=== PATIENT | female | born 1945 | race Caucasian/White ===

== ENCOUNTER → 2018-08-21 14:38 | Outpatient (CLI) | payer MEDICARE, BC, OTHER, SELFPAY ==
--- NOTE | 2018-08-21 14:40 | DI.RAD.S_ITS ---
PROCEDURE: XR FOOT LT MIN 3V INDICATIONS: Pain in L foot after fall down stairs TECHNIQUE: 3 views of the foot were acquired. COMPARISON: None. FINDINGS: Bones: No fractures or dislocations. No suspicious bony lesions. Soft tissues: No tibiotalar joint effusion. Achilles tendon appears normal. IMPRESSION: No visualized acute fracture or dislocation. However, if clinical concern and/or pain persist, short interval imaging followup in 7-10 days is recommended, as occult injury cannot be definitively excluded. Dictated by: Zaria Martinez M.D. on 08/21/2018 at 15:28 Approved by: Zaria Martinez M.D. on 08/21/2018 at 15:36
== END ==
PROVIDERS: PCP Internal Medicine; Visit Provider Physician Assistant
DX: M79.672 Pain in left foot (principal)
CPT/HCPCS: 73630

== ENCOUNTER → 2019-03-13 08:26 | Outpatient (CLI) | payer MEDICARE, BC, OTHER, SELFPAY ==
--- NOTE | 2019-03-13 | DI.MG.S_ITS ---
BILATERAL DIGITAL SCREENING MAMMOGRAM 3D/2D WITH CAD: 03/13/2019 CLINICAL: Routine screening. Comparison is made to exams dated: 02/07/2018 mammogram, 01/25/2017 mammogram, and 01/11/2016 mammogram - [facility]. The tissue of both breasts is heterogeneously dense. This may lower the sensitivity of mammography. Current study was also evaluated with a Computer Aided Detection (CAD) system. There are a grouped fine punctate calcifications in the left breast at 1 o'clock posterior depth. No other significant masses, calcifications, or other findings are seen in either breast. IMPRESSION: INCOMPLETE: NEEDS ADDITIONAL IMAGING EVALUATION The grouped fine punctate calcifications in the left breast are indeterminate. Mediolateral, spot magnification, and additional views are recommended. This exam was interpreted at Station ID: [id number]. NOTE: For mammograms, a report in lay terms will be sent to the patient. Approximately 15% of breast malignancies will not be visualized mammographically. In the management of a palpable breast mass, a negative mammogram must not discourage biopsy of a clinically suspicious lesion. Electronically Signed By: Jac myers/salvador:03/13/2019 11:38:37 letter sent: Additional Imaging Needed ACR BI-RADS Category 0: Incomplete 3340F
== END ==
PROVIDERS: PCP Internal Medicine; Visit Provider Internal Medicine
DX: Z12.31 Encounter for screening mammogram for malignant neoplasm of breast (principal)
CPT/HCPCS: 77063; 77067

== ENCOUNTER → 2019-03-27 14:06 | Outpatient (CLI) | payer MEDICARE, BC, OTHER, SELFPAY ==
--- NOTE | 2019-03-27 | DI.US.S_ITS ---
LIMITED ULTRASOUND OF LEFT BREAST: 03/27/2019 CLINICAL: Patient returns today to evaluate a focal asymmetry in the left breast. Comparison is made to exams dated: 03/27/2019 mammogram, 03/13/2019 mammogram, 02/07/2018 mammogram, 01/25/2017 mammogram, 01/11/2016 mammogram, and 12/02/2014 mammogram - [facility]. Color flow and real-time ultrasound of the left breast 2 o'clock region were performed on the areas of interest. There is 0.4 cm x 0.3 cm x 0.3 cm round cyst with debris in the left breast at 2 o'clock posterior depth. This round cyst with debris is hypoechoic with a well-defined boundary and internal echoes. There is not definitive posterior acoustic enhancement. This likely correlates with mammography findings. Color flow imaging demonstrates that there is no vascularity present. IMPRESSION: PROBABLY BENIGN The 0.4 cm x 0.3 cm x 0.3 cm round cyst with debris in the left breast is probably benign. Follow-up mammogram and ultrasound in 6 months is recommended. A follow-up mammogram and an ultrasound in 6 months is recommended to demonstrate stability. This exam was interpreted at Station ID: [id number]. Electronically Signed By: Jac myers/:03/29/2019 15:53:36 letter sent: Followup Recommended Ultrasound BI-RADS: 3 Probably benign
--- NOTE | 2019-03-27 14:08 | DI.MG.S_ITS ---
UNILATERAL LEFT DIGITAL DIAGNOSTIC MAMMOGRAM 3D/2D WITH ADDITIONAL VIEWS: 03/27/2019 CLINICAL: Additional evaluation requested from prior study. Comparison is made to exams dated: 03/13/2019 mammogram, 02/07/2018 mammogram, and 01/25/2017 mammogram - [facility]. The tissue of left breast is heterogeneously dense. This may lower the sensitivity of mammography. There are new grouped fine punctate calcifications in the left breast at 2 o'clock posterior depth. There is suggestion of an associated oval asymmetry with indistinct margins. No other significant masses or calcifications are seen in the breast. IMPRESSION: INCOMPLETE: NEEDS ADDITIONAL IMAGING EVALUATION The new grouped fine punctate calcifications in the left breast with associated asymmetry are indeterminate. An ultrasound is recommended. This exam was interpreted at Station ID: [id number]. NOTE: For mammograms, a report in lay terms will be sent to the patient. Approximately 15% of breast malignancies will not be visualized mammographically. In the management of a palpable breast mass, a negative mammogram must not discourage biopsy of a clinically suspicious lesion. Electronically Signed By: Jac Miller M.D. ddclive/:03/27/2019 14:44:37 ACR BI-RADS Category 0: Incomplete 3340F
== END ==
PROVIDERS: PCP Internal Medicine; Visit Provider Internal Medicine
DX: R92.8 Other abnormal and inconclusive findings on diagnostic imaging of breast (principal); N60.02 Solitary cyst of left breast
CPT/HCPCS: 76642; 77065; G0279

== ENCOUNTER → 2019-06-26 12:22 | Outpatient (CLI) | payer MEDICARE, BC, OTHER, SELFPAY ==
[2019-06-26 12:42] LABS: Add Manual Diff / Slide Review NO; Basophils Absolute Auto 0 /uL (0-100); Basophils Percent Auto 0.6 % (0-2); Eosinophils Absolute Auto 200 /uL (0-450); Eosinophils Percent Auto 2.8 % (2-4); Hematocrit 37.2 % (36-46); Hemoglobin 12.6 g/dL (12.0-16.0); Lymphocytes Absolute Auto 2700 /uL (1100-4500); Lymphocytes Percent Auto 33.9 % (25-40); Mean Corpuscular HGB Conc 33.9 % (30-36); Mean Corpuscular Hemoglobin 30.8 PG (26-34); Mean Corpuscular Volume 90.7 fL (80-100); Monocytes Absolute Auto 700 /uL (0-900); Neutrophils Absolute Auto 4300 /uL (1500-7000); Neutrophils Percent Auto 53.7 % (50-75); Platelet Count 382 X10^3/uL (150-400); Red Cell Distribution Width 14.1 % (11.6-14.8)
[2019-06-26 13:27] LABS: Carbon Dioxide 34 mmol/L (22-32); Chloride 99 mmol/L (98-107); HEMOLYSIS < 15 (0-50); Potassium 4.1 mmol/L (3.4-5.1); Sodium 142 mmol/L (137-145)
== END ==
PROVIDERS: Family Provider Internal Medicine; PCP Internal Medicine; Visit Provider Orthopaedic Surgery
DX: M17.12 Unilateral primary osteoarthritis, left knee (principal); Z01.818 Encounter for other preprocedural examination; Z01.812 Encounter for preprocedural laboratory examination
CPT/HCPCS: 36415; 80051; 85025; 93005; 93010

== ENCOUNTER 2019-07-17 07:06 | Day surgery (SDC) | payer MEDICARE, BC, OTHER, SELFPAY ==
[2019-07-03 08:46] VITALS: BMI 25.0
[2019-07-17] VITALS (10 sets, daily range): BP systolic 123–144; BP diastolic 57–80; PULSE 68–76; RESP 12–16; TEMP 36–36.6; O2SAT 94–100; BMI 25.0
--- NOTE | 2019-07-17 06:00 | DI.RAD.S_ITS ---
PROCEDURE: XR KNEE LT 1TO2V INDICATIONS: post op left TKA TECHNIQUE: 2 view(s) of the knee acquired. COMPARISON: None. FINDINGS: Bones: Patient is status post knee joint arthroplasty. Hardware components are in expected positions. Visualized bony structures are intact. Soft tissues: Overlying postoperative changes are noted. IMPRESSION: Status post left total knee arthroplasty. Dictated by: Michaelle Gerber M.D. on 07/17/2019 at 11:27 Approved by: Michaelle Gerber M.D. on 07/17/2019 at 11:28
--- NOTE | 2019-07-17 07:29 | PM.PREOP ---
Pre-operative Note Interval Note History & Physical reviewed/Exam performed by Physician: Yes Changes to H&P: No
[2019-07-17] MEDS: LACTATED RINGERS 1,000 ML 42 ML IV (07:45)
[2019-07-17] MEDS: PREGABALIN 75 MG CAPSULE PO (08:05)
[2019-07-17] MEDS: CELECOXIB 200 MG CAPSULE PO (08:06)
[2019-07-17] MEDS: ACETAMINOPHEN 325 MG TABLET 975 MG PO ×2 (08:06→14:49)
--- NOTE | 2019-07-17 08:06 | SUR.OPER ---
Supine on padded OR bed. Pillow under head, arms secured on padded armboards <90 degree abduction. Safety belt across torso. Non-operative leg secured with tape over blanket over lower leg. Operative leg secured in DeMayo/Stewart positioner. Foam padded brace at thigh of operative leg.
[2019-07-17] MEDS: VANCOMYCIN 1,000 MG/200 ML PIGGYBACK 200 MG IV (08:33)
[2019-07-17] MEDS: LIDOCAINE 1% W/EPI 20 ML INJ (09:35)
[2019-07-17] MEDS: TRANEXAMIC ACID 1,000 MG VIAL 1000 MG INJ (09:40)
[2019-07-17] MEDS: BUPIVACAINE 0.25% W/ EPI (PF) 20 ML, TRANEXAMIC ACID 1,000 MG, SODIUM CHLORIDE 0.9% 10 ML INJ (10:05)
[2019-07-17] MEDS: BUPIVACAINE LIPOSOME 266 MG/20 ML VIAL INJ (10:07)
[2019-07-17] MEDS: BUPIVACAINE 0.25% W/ EPI 30 ML VIAL 60 ML INJ (10:07)
[2019-07-17] MEDS: SODIUM CHLORIDE IRRIG SOLUTION 250 ML, POVIDONE-IODINE SPONGE STICKS 1 APPLIC IRR (10:10)
--- NOTE | 2019-07-17 10:59 | PM.OP.1 ---
Operative Date/Time/Diagnoses Date of procedure: 07/17/19 Time of procedure: 10:59 Pre-op diagnosis: Left knee osteoarthritis Post-op diagnosis: same Procedure & Clinicians Procedure: Left total knee arthroplasty Same procedure as scheduled: Yes Indications: The patient presents today for total knee arthroplasty after failure of conservative treatment. The nature of the procedure including the risks and benefits, alternatives, postoperative course and expected outcome were discussed and all questions answered. Consent was obtained. Operative site confirmed and marked. Surgeon: Jac Pitt [employer] Associate: Neo Cote Anesthesia Type: General and Local Operative Notes Findings: Severe osteoarthritis with varus alignment Closure Type: primary Specimen(s): none sent Prosthetic devices, grafts, tissues, transplants, or devices: Zamora and Nephew Zohaib BCS: 3 femoral component, 3 tibial component, 9 mm BCS polyethylene tray and 32 mm round patella Applied: implant(s) Estimated Blood Loss (mL): 20 Blood products transfused: none Tourniquet time (min): 51 Procedure in detail: The patient was taken to the operative suite and placed under general. The patient was given prophylactic antibiotics prior to surgery. The patient was also given tranexamic acid, 1 g, just prior to surgery for postoperative hemostasis. The lateral knee was prepped and the joint injected with 20 mL of 1% Lidocaine with epinephrine. The knee was then prepped and draped in usual sterile fashion. The leg was exsanguinated with an Esmarch dressing and the tourniquet raised to 250 torr. A 15 cm anterior incision was made. Next a medial trivector arthrotomy was made. The extensor mechanism was marked to ensure accurate repair. Initial exposing dissection was carried out medially and laterally. The knee was then extended and the patellar thickness was measured and a cut made removing approximately 7-8 mm of bone. The patella was then sized and drilled. Some excess lateral bone was excised and the patellofemoral ligament released. The knee was then flexed and the intramedullary femoral guide shubham placed. The distal femoral cut was made in 6 ? of valgus at the + 0 position. The femoral size was measured and the appropriate cutting block was then placed and the anterior, posterior and chamfer cuts made. The extra medullary tibial alignment shubham was then placed along the anatomic axis of the tibia approximating the normal slope. The guide was set to remove approximately 10 mm from the less affected lateral side. The proximal tibial cut was then made with an oscillating saw. All meniscus and bony debris was then removed. Flexion extension gaps were checked. No specific balancing was required other than routine removal of osteophytes. The soft tissues were then injected with a combination of 20 mL of half percent Marcaine with epinephrine and 20 mL of Exparel. The trial components were then placed. The knee went into full extension and flexion beyond 120?. There was excellent medial- lateral balance throughout motion. The knee was just slightly tighter medially than laterally in flexion and extension. Patellar tracking was excellent. The trial components were removed and the knee was cleansed with Pulsavac irrigation and dried. The final components were cemented in with high viscosity vacuum mixed bone cement with antibiotics. The knee was held in extension and the patellar clamp until the cement had adequately cured. The knee was irrigated and inspected for any further debris. The knee was then irrigated with dilute Betadine solution. The extensor mechanism was closed with 5 interrupted #1 Vicryl sutures in 90 degrees of flexion. The joint was then injected with a combination of 1 g of tranexamic acid and 20 mL of quarter percent Marcaine with epinephrine. The subcutaneous tissue was closed with 2-0 Vicryl. The skin was closed with nayeli and surgical adhesive. An Aquacell dressing and Azam wrap were then applied. The patient tolerated the procedure well and was returned to recovery room in good condition. Complications: none
[2019-07-17] MEDS: LACTATED RINGERS 1,000 ML 125 ML IV (12:45)
--- NOTE | 2019-07-17 14:58 | PT.IIE ---
Current Diagnoses Unilateral primary osteoarthritis, left knee (07/17/19) Surgery Performed Operation Date: 07/17/19 09:15 Actual Procedures p Total Knee Arthroplasty(Left) - Jac Pitt MD Surgical History (Last Updated 07/03/19 @ 09:17 by Evelia Garza, RN) History of colonoscopy with polypectomy (Acute ~02/2017) Hx of appendectomy (Acute) Hx of arthroscopy of left knee (Acute ~2007) Hx of bilateral cataract extraction (Acute ~2011) Hx of hernia repair (Acute ~1993) Hx of repair of right rotator cuff (Acute ~2011) Hx of tonsillectomy (Acute ~1948) Status post correction of deviated nasal septum (Acute ~1997) Medical History (Last Updated 07/03/19 @ 09:16 by Evelia Garza RN) Depression (Acute) Diverticulosis of large intestine (Inactive 06/09/11) H/O: hysterectomy (Acute) Hyperlipidemia (Chronic 06/09/11) Hypertension (Chronic 06/09/11) Migraine without status migrainosus, not intractable (Inactive 01/13/17) Obstructive sleep apnea syndrome (Chronic 06/09/11) Pneumonia (Acute ~09/2015) Rib fractures (Acute ~1977) Serrated adenoma of colon (Inactive 09/21/17) Physical Therapy Inpatient Evaluation/Re-Eval M1 PT/OT-IP Prior Functional Status Start: 07/17/19 13:10 Freq: NEEDED Status: Active Protocol: Document 07/17/19 14:58 DLM (Rec: 07/17/19 16:49 DLM [id number]) Medical Review Prior Functional Status Medical History Reviewed Yes Diet/Fluid Consistency Regular Communication WNL Mobility and Gait Independent without device, used cane intermittently before surgery to manage her knee pain Activities of Daily Living and IADL's Independent Social History Household Members none Living Arrangements House Number of Floors (Floors) One Floor Number of Stairs To Enter/Railing? none Home Environment Standard Height Toilet,Walk in Shower,Built-In Shower Seat Home Equipment Four Wheel Walker,Straight Cane,Raised Toilet Seat Without Armrests Employment Status Retired Additional Social History Comment suction grab bars she can use in bathroom if needed M2 PT-IP Current Condition Start: 07/17/19 13:10 Freq: NEEDED Status: Active Protocol: Document 07/17/19 14:58 DLM (Rec: 07/17/19 16:49 [facility] [id number]) Physical Therapy Current Condition Current Condition Evaluation Date 07/17/19 Treatment Diagnosis left TKA, impaired gait/ mobility Onset Date 07/17/19 Weight Bearing Status Weight Bearing Status Weight Bear as Tolerated M3 PT-IP Subjective Start: 07/17/19 13:10 Freq: NEEDED Status: Active Protocol: Document 07/17/19 14:58 DLM (Rec: 07/17/19 16:49 [facility] [id number]) Subjective Physical Therapy Visit Type Type Initial Evaluation Visit Start Time 14:10 Visit Stop Time 14:58 Total Visit Minutes 48 Number of SCIENTIFIC LINGUIST Visits 0 Physical Therapy Visit Comments Patient Comments She feels like she could go home today Patient Goals discharge home with her Sister to help her as needed Therapy Pain Assessment Pain When Pain Assessed During Mobility Pain Present Pain Present Pain Reported Location Left Knee Intensity 2 Scale Used Numeric (1 - 10) Description Aching Pain Management Techniques Apply Cold,Re-positioning M4 PT-IP Mobility and Gait Start: 07/17/19 13:10 Freq: NEEDED Status: Active Protocol: Document 07/17/19 14:58 DLM (Rec: 07/17/19 16:49 [facility] [id number]) PT-Bed Mobility Assessment Rolling Level of Assist Independent Supine to Sit Supine to Sit Independent Sit to Supine Sit to Supine Independent Scooting Scooting to Edge of Bed Independent PT-Transfer Assessment Sit to and From Stand Sit to and from Stand Independent,Use of Upper Extremities Equipment Transfer Assistive Device Gait Belt,Front Wheeled Walker Transfers Transfer Destination Chair Transfer Technique Stand Step Pivot Transfer Ability Level of Assist Independent,Use of Upper Extremities Comments Mobility Comments verbal cues for safe use of UE 's to assist Gait Assessment Gait Gait Assistance Required: Standby Assistance Distance (Feet) 100 Able to Maintain Weight Bearing Status Yes During Gait Assistive Devices Assistive Device Gait Belt,Front Wheeled Walker Gait Deviations General Gait Pattern Antalgic Factors Limiting Gait Function Factors Limiting Gait Function Decreased Activity Tolerance, Decreased Strength Comments Gait Comments education for sequencing with fWW PT-Balance Assessment Sitting Balance and Reactions Static Sitting Balance Ability Normal Dynamic Sitting Balance Ability Good Standing Balance and Reactions Static Standing Balance Ability Good Dynamic Standing Balance Ability Good Device Used FWW M5 PT-IP Objective Assessments Start: 07/17/19 13:10 Freq: NEEDED Status: Active Protocol: Document 07/17/19 14:58 DLM (Rec: 07/17/19 16:49 [facility] [id number]) Orientation Orientation/Cognition Level of Alertness Alert Orientation Name,Age,Birthday,Month,Date, Year,Day of Week,Place, Situation Language Function Ability No Deficits Noted Safety Awareness Understands Safety Issues Memory Description No Deficits Noted Gross Range of Motion Upper Extremity ROM Assessment Within Functional Limits Lower Extremity ROM Assessment Left Impaired Impairments AROM 10-88 degrees Strength Upper Extremity Strength Assessment Within Functional Limits Lower Extremity Strength Assessment Left Impaired Hip able to do straight leg raise with extensor lag Knee 3-/5 ext Ankle DF 5/5 Coordination Assessment Gross Coordination Gross Coordination WNL Sensation Assessment Sensation Gross Sensation WNL Comments Sensation Comments no numbness reported, ronaldo wrap and dressing over left knee post-op Muscle Tone Muscle Tone WNL Yes M6 PT-IP Treatment Start: 07/17/19 13:10 Freq: NEEDED Status: Active Protocol: Document 07/17/19 14:58 DLM (Rec: 07/17/19 16:49 [facility] [id number]) Physical Therapy Treatment Exercises Exercises Ankle Pumps,Quad Sets,Heel Slides,Straight Leg Raises, Short Arc Quads,Passive Knee Extension Hang,Seated Knee Flexion/Extension Education Education Provided Weight Bearing Status,Post-Op Packet,Safety M7 PT-IP Assessment and Plan Start: 07/17/19 13:10 Freq: NEEDED Status: Active Protocol: Document 07/17/19 14:58 DLM (Rec: 07/17/19 16:49 [facility] [id number]) PT Summary Assessment and Plan Potential Rehabilitation Potential Good Status of Condition at Evaluation Evolving Summary Impairments Pain,ROM,Strength,Balance,Bed Mobility,Transfers,Gait, Activity Tolerance Assessment Summary Ana is tolerating mobility and gait well day of surgery for left TKA. No nausea and no light-headedness when up moving. Pt up to recliner and ambulated in the barclay with fWW . Her Sister plans to stay with her at home to assist as needed. She has the equipment to use at home. She has out-pt PT set up after discharge. She appears safe to discharge home today if medically cleared by the surgeon. Treatment Plan Other Recommendations and Next Treatment cleared for discharge home Focus with medically cleared Recommendations To Nursing Amount of Assist Needed Standby Assistance Discharge Recommendations PT Discharge Recommendations Home with Assistance, Outpatient PT
--- NOTE | 2019-07-17 15:07 | PM.DS.1 ---
History of Present Illness History of Present Illness Date Patient Seen: 07/17/19 Time Patient Seen: 15:07 Chief complaint: [id number] Narrative: Patient's pain is mild. No fever chills. No nausea vomiting. She was able ambulate with physical therapy. She was able to urinate on her own. She has assistance at home. Patient wishes to go home. Discharge Providers Provider Date of admission: 07/17/19 07:06 Discharge Date: 07/17/19 Primary care physician: Jayson Devine MD Consults: 07/17/19 08:00 Consult to Respiratory Therapy Evaluate & Treat Comment: Physician Instructions: Evaluate and treat 07/17/19 12:09 Consult to Discharge Planning Routine Comment: Consult to Physical Therapy Evaluate & Treat Comment: Physician Instructions: postop TKA protocol Consult to Respiratory Therapy Evaluate & Treat Comment: Physician Instructions: Evaluate and treat Discharge provider: Neo Cote PA-C Summary Hospital Course Discharge Diagnosis: Status post left total knee arthroplasty secondary to severe left knee osteoarthritis Hospital Course: Patient mid to the hospital for left total knee arthroplasty after failing a long course of conservative outpatient treatment. Patient consented to the same. Patient taken to the operating room underwent left total knee arthroplasty. Patient is recovering well as in stable condition. Patient has worked with Physical therapy and able to mobilize. She is able urinate on her own. Pain is well controlled. She will be discharged home today in stable condition. Status at Discharge Cognitive/behavioral status at discharge: at baseline, oriented Functional status at discharge: uses cane/walker Overall status at discharge: patient is progressing back to baseline Time Spent with Patient Time spent: Less than 30 minutes Exam Vital Signs (past 8 hours): - 07/17/19 07:45 07/17/19 11:05 07/17/19 11:10 Temperature 96.8 F L 97.8 F Pulse Rate 68 75 70 Respiratory Rate 15 12 12 Blood Pressure 144/80 H 136/57 L 125/66 Pulse Oximetry 99 97 97 07/17/19 11:15 07/17/19 11:25 07/17/19 11:40 Temperature Pulse Rate 71 73 73 Respiratory Rate 12 14 15 Blood Pressure 137/66 135/61 131/63 Pulse Oximetry 98 95 94 07/17/19 12:09 07/17/19 12:53 07/17/19 13:00 Temperature 97.5 F L 97.4 F L Pulse Rate 74 72 74 Respiratory Rate 16 16 16 Blood Pressure 131/67 125/70 Pulse Oximetry 96 99 100 08 13:59 Temperature 97.4 F L Pulse Rate 76 Respiratory Rate 16 Blood Pressure 123/66 Pulse Oximetry 97 Fraction of Inspired Oxygen 21 Oxygen Delivery Method Room Air Oxygen Flow Rate 0 Narrative Exam Narrative: Pleasant 73-year-old female resting comfortably in bedside chair in no apparent distress. Dressing is clean, dry and intact. Left lower extremity is warm and dry. Motor function and sensation is intact distally. Discharge Plan Discharge Plan Patient Disposition: Home Discharge Med Rec/Prescriptions Prescriptions: New aspirin 81 mg Tablet,Delayed Release (Dr/Ec) 81 mg PO BID Qty: 60 RF: 0 Continued multivitamin Capsule 1 cap PO BEDTIME Qty: 0 RF: 0 atenolol 50 mg Tablet 50 mg PO BEDTIME RF: 0 naproxen sodium [Aleve] 220 mg Capsule 440 mg PO BEDTIME RF: 0 atorvastatin [Lipitor] 20 mg tablet 20 mg PO BEDTIME RF: 0 hydrochlorothiazide 25 mg tablet 25 mg PO BEDTIME RF: 0 escitalopram oxalate [Lexapro] 10 mg tablet 10 mg PO BEDTIME RF: 0 Discontinued aspirin 81 mg Tablet,Delayed Release (Dr/Ec) 81 mg PO BEDTIME Qty: 0 RF: 0 Follow up/Referrals: Jac Pitt MD [Physician] - (1 wk) Jayson Devine MD [Primary Care Provider] - Provider Discharge Instructions Diet: Diet as Tolerated Activity: per [facility] Cold/Heat Therapy: per [facility] Other treatments: Aspirin 81 mg b.i.d., Tylenol 500 mg every 4 hours, NSAID as directed Skin/Wound/Dressing Care Report to your healthcare provider any signs of infection, such as:: chills, fever Dressing: keep clean and dry Discharge Data Primary Care Provider: Jayson Devine
--- NOTE | 2019-07-17 16:55 | PC.NURSE ---
Criselda shift note: Patient discharge home per MD orders, cleared by PT. Verbalized understanding of discharge instructions, discussed importance of F/U with Orthopedic in 1 week. CMS intact to LLE. No c/o pain or discomfort, VSS. Discharged home via private vehicle in stable condition.
== END 2019-07-17 13:45 | disposition home or self-care (01) ==
LOC: AC 15:07 → OR 07-18 08:56
PROVIDERS: Family Provider Internal Medicine; PCP Internal Medicine; Visit Provider Orthopaedic Surgery
PROC: 0SRD0JZ Replacement of Left Knee Joint with Synthetic Substitute, Open Approach (ICD-10-PCS; CPT 27447; principal; 2019-07-17 09:15)
DX: M17.12 Unilateral primary osteoarthritis, left knee (principal); I10 Essential (primary) hypertension; E78.5 Hyperlipidemia, unspecified; G47.33 Obstructive sleep apnea (adult) (pediatric); F17.210 Nicotine dependence, cigarettes, uncomplicated
CPT/HCPCS: 27447; 73560; 94762; 97110; 97162; C1776; C9290; J1100; J2250; J2405; J2704; J3010

== ENCOUNTER → 2019-09-27 09:56 | Outpatient (CLI) | payer MEDICARE, BC, OTHER, SELFPAY ==
[2019-07-17 12:22] VITALS: BMI 25.0
--- NOTE | 2019-09-27 10:00 | DI.US.S_ITS ---
LIMITED ULTRASOUND OF LEFT BREAST: 09/27/2019 CLINICAL: 6 month follow-up of the left breast. Comparison is made to exams dated: 09/27/2019 mammogram, 03/27/2019 ultrasound, 03/27/2019 mammogram, 03/13/2019 mammogram, 02/07/2018 mammogram, and 01/25/2017 mammogram - [facility]. Color flow and real-time ultrasound of the left breast 2 o'clock region were performed. Raza scale images of the real-time examination were reviewed. There is a 0.5 cm x 0.4 cm x 0.3 cm oval cyst with debris in the left breast at 2 o'clock middle depth 6 cm from the nipple. This abnormality has not significantly changed. Color flow imaging demonstrates that there is no vascularity present. IMPRESSION: PROBABLY BENIGN The 0.5 cm oval cyst with debris in the left breast is fairly stable and appears benign. It is uncertain if it corresponds to the calcifications on mammogram. No suspicious sonographic features. A follow-up left mammogram in 6 months is recommended to demonstrate stability of probably benign calcifications also at the 2:00 position posterior depth. Findings and recommendations were conveyed to the patient at time of exam. This exam was interpreted at Station ID: [id number]. Electronically Signed By: Lori oconnell/:09/27/2019 11:34:59 letter sent: Followup Recommended Ultrasound BI-RADS: 3 Probably benign
--- NOTE | 2019-09-27 10:00 | DI.MG.S_ITS ---
UNILATERAL LEFT DIGITAL DIAGNOSTIC MAMMOGRAM 3D/2D SHORT-TERM FOLLOW-UP: 09/27/2019 CLINICAL: Patient returns for a 6 month follow up of the left breast. Comparison is made to exams dated: 03/27/2019 mammogram, 03/13/2019 mammogram, and 02/07/2018 mammogram - [facility]. The tissue of left breast is heterogeneously dense. This may lower the sensitivity of mammography. There are stable grouped fine, dystrophic punctate calcifications in the left breast at 2 o'clock posterior depth. No underlying developing asymmetry. No other significant masses or calcifications are seen in the breast. IMPRESSION: INCOMPLETE: NEEDS ADDITIONAL IMAGING EVALUATION The stable grouped fine dystrophic punctate calcifications in the left breast are probably benign. An ultrasound is recommended to document stability of previously seen underlying complicated cyst. This was performed immediately following this exam. This exam was interpreted at Station ID: [id number]. NOTE: For mammograms, a report in lay terms will be sent to the patient. Approximately 15% of breast malignancies will not be visualized mammographically. In the management of a palpable breast mass, a negative mammogram must not discourage biopsy of a clinically suspicious lesion. Electronically Signed By: Lori oconnell/:09/27/2019 11:05:57 ACR BI-RADS Category 0: Incomplete 3340F
== END ==
PROVIDERS: PCP Internal Medicine; Visit Provider Internal Medicine
DX: R92.8 Other abnormal and inconclusive findings on diagnostic imaging of breast (principal); R92.1 Mammographic calcification found on diagnostic imaging of breast; N60.02 Solitary cyst of left breast
CPT/HCPCS: 76642; 77065; G0279

== ENCOUNTER → 2020-03-12 09:48 | Outpatient (CLI) | payer MEDICARE, BC, OTHER, SELFPAY ==
[2019-07-17 12:22] VITALS: BMI 25.0
--- NOTE | 2020-03-12 | DI.MG.S_ITS ---
BILATERAL DIGITAL DIAGNOSTIC MAMMOGRAM 3D/2D: 03/12/2020 CLINICAL: Left breast calcifications follow up, due bilaterally. Comparison is made to exams dated: 09/27/2019 mammogram, 03/27/2019 mammogram, 03/13/2019 mammogram, 02/07/2018 mammogram, 09/27/2019 ultrasound, and 03/27/2019 ultrasound - [facility]. The tissue of both breasts is heterogeneously dense. This may lower the sensitivity of mammography. There are stable grouped fine dystrophic punctate calcifications in the left breast at 2 o'clock posterior depth. No other significant masses, calcifications, or other findings are seen in either breast. IMPRESSION: PROBABLY BENIGN Stable punctate calcifications in the left breast are likely early dystrophic calcifications and are probably benign. Follow-up mammogram of the left breast is recommended in 6 months. A targeted ultrasound is recommended of the left breast for previously seen probably benign complicated cyst. The ultrasound is scheduled for Tuesday, March 17, 2020. Exam findings were conveyed to the patient by the Manufacturing Quality Technician. This exam was interpreted at Station ID: [id number]. NOTE: For mammograms, a report in lay terms will be sent to the patient. Approximately 15% of breast malignancies will not be visualized mammographically. In the management of a palpable breast mass, a negative mammogram must not discourage biopsy of a clinically suspicious lesion. Electronically Signed By: Aric Ross M.D. [facility] [place]/:03/12/2020 12:34:49 ACR BI-RADS Category 3: Probably benign [id number]
== END ==
PROVIDERS: PCP Internal Medicine; Referring Provider Internal Medicine; Visit Provider Internal Medicine
DX: R92.1 Mammographic calcification found on diagnostic imaging of breast (principal); N60.02 Solitary cyst of left breast
CPT/HCPCS: 77066; G0279

== ENCOUNTER → 2020-03-17 12:33 | Outpatient (CLI) | payer MEDICARE, BC, OTHER, SELFPAY ==
[2019-07-17 12:22] VITALS: BMI 25.0
--- NOTE | 2020-03-17 12:35 | DI.US.S_ITS ---
ULTRASOUND OF LEFT BREAST: 03/17/2020 CLINICAL: 6 month follow-up of cysts. Comparison is made to exams dated: 03/12/2020 mammogram, 09/27/2019 ultrasound, 09/27/2019 mammogram, 03/27/2019 ultrasound, and 03/27/2019 mammogram - [facility]. Color flow and real-time ultrasound of the left breast were performed. Raza scale images of the real-time examination were reviewed. There is a 0.5 cm x 0.4 cm x 0.4 cm oval cyst with debris in the left breast at 2 o'clock middle depth 6 cm from the nipple. This abnormality is not significantly changed. Color flow imaging demonstrates that there is no vascularity present. IMPRESSION: PROBABLY BENIGN The stable 0.5 cm x 0.4 cm x 0.4 cm oval cyst with debris in the left breast likely represents a complicated cyst and is probably benign. A follow-up left mammogram and an ultrasound in 6 months is recommended to demonstrate stability. This exam was interpreted at Station ID: [id number]. Electronically Signed By: Rafat Hernandez M.D. at/:03/17/2020 13:22:13 letter sent: Followup Recommended Ultrasound BI-RADS: 3 Probably benign
== END ==
PROVIDERS: PCP Internal Medicine; Referring Provider Internal Medicine; Visit Provider Internal Medicine
DX: R92.8 Other abnormal and inconclusive findings on diagnostic imaging of breast (principal); N60.02 Solitary cyst of left breast
CPT/HCPCS: 76642

== ENCOUNTER 2020-05-12 07:56 | Inpatient (IN) | payer MEDICARE, BC, OTHER, SELFPAY ==
[2019-07-17 12:22] VITALS: BMI 25.0
[2020-05-12] VITALS (23 sets, daily range): BP systolic 90–185; BP diastolic 43–87; PULSE 65–80; RESP 13–24; TEMP 35.9–37.4; O2SAT 96–100; BMI 25.0; BMI 24.2
--- NOTE | 2020-05-12 | PATH_ITS ---
[facility] Accession Number: [id number] . 01 Material submitted: . gastrointestinal site - GASTRIC BIOPSY . 01 Clinical history: . SYNCOPE, VOMITING R/O H.PYLORI . 02 Diagnosis: Gastric Biopsy: Antral and body-type mucosa with mild chronic inflammation. Negative for Helicobacter organisms by immunohistochemistry. Negative for intestinal metaplasia. Negative for dysplasia and malignancy. MRV 05/14/2020 1031 Local . 02 Electronically signed: . Cynthia Nathan MD, Pathologist NPI- [id number] . 01 Gross description: . GASTRIC BIOPSY: Received in formalin are 4 fragment(s) of ram, soft tissue measuring 0.3 x 0.2 x 0.1 cm to 0.1 x 0.1 x 0.1 cm submitted entirely in 1 cassette(s) /QBJ 05/13/2020 0425 Local . 02 Microscopic: . An immunohistochemical stain was performed to evaluate for Helicobacter organisms and is negative. The control stain showed appropriate reactivity. . * This test was developed and its performance characteristics determined by [facility]. It has not been cleared or approved by the U.S. Food and Drug Administration. The FDA has determined that such clearance or approval is not necessary. This test is used for clinical purposes. It should not be regarded as investigational or for research. . 02 Pathologist provided ICD-10: K29.70 . 02 CPT . 400502, H48258 Performed at: 01 [facility] [address] [facility], [place], [place] [id number] MD Jac Owens MD Phone: [phone] Performed at: 02 [facility] [id number] [place], [place] [id number] MD Sachi Clarke MD Phone: [phone]
--- NOTE | 2020-05-12 08:04 | ED.GIBLEED ---
HPI - GI Bleed General Chief complaint: GI Bleed Stated complaint: Syncope, Vomiting Time Seen by Provider: 05/12/20 08:01 Source: patient and EMS Mode of arrival: EMS Limitations: no limitations History of Present Illness HPI Narrative: Patient is a 74-year-old female on aspirin presenting with multiple syncopal episodes and continuous black stool for 2 days. She states that she has had multiple episodes of black stool and at least 5 times of a vomit since yesterday. She states every time she stands up she passes out. This has happened multiple times she gets extremely lightheaded and usually falls back to the couch. She is not sure that she has hit her head she denies any injury from the falls. She feels short of breath at times as well she has no abdominal pain. Initial pressure for EMS was 60 over palpable which has improved with IV fluids. Treatments Prior to Arrival: none Related Data Home Medications Medication Instructions Recorded Confirmed multivitamin 1 cap PO BEDTIME #0 10/05/11 05/12/20 aspirin 81 mg tablet,delayed 81 mg PO DAILY tab 09/10/19 05/12/20 release naproxen sodium 220 mg capsule 440 mg PO BEDTIME PRN 09/10/19 05/12/20 Previous Rx's Medication Instructions Recorded atorvastatin 20 mg tablet 20 mg PO BEDTIME #90 tab 09/10/19 escitalopram oxalate 10 mg tablet 10 mg PO BEDTIME #90 tab 09/10/19 hydrochlorothiazide 25 mg tablet 25 mg PO BEDTIME #90 tab 09/10/19 metoprolol succinate 50 mg 50 mg PO QDAY #90 ter 04/15/20 tablet,extended release 24 hr Allergies Allergy/AdvReac Type Severity Reaction Status Date / Time Penicillins [PENICILLINS] Allergy Intermediate Hives Verified 05/12/20 08:07 adhesive [ADHESIVE] Allergy Mild RASH Verified 05/12/20 08:07 CHIVES Allergy Severe ANAPHYLAXIS Uncoded 05/12/20 08:07 Review of Systems Review of Systems ROS Unobtainable: All systems reviewed & are unremarkable except as noted in HPI and below Constitutional Constitutional: Reports fatigue and Denies frequent falls ENT Ears, Nose, Mouth, and Throat: Denies dizziness Cardiovascular Cardiovascular: Denies chest pain, Denies chest pain at rest, Denies edema and Reports dyspnea on exertion Respiratory Respiratory: Reports dyspnea on exertion Gastrointestinal Gastrointestinal: Reports as per HPI Musculoskeletal Musculoskeletal: Denies numbness Integumentary/Breasts Skin/Breast: Denies pruritus, Denies erythema, Denies rash and Denies wounds Neurologic Neurologic: Denies behavioral changes, Denies confusion, Denies dizziness, Denies frequent falls and Denies numbness Psychiatric Psychiatric: Denies behavioral changes and Denies confusion Endocrine Endocrine: Reports fatigue Patient History Medical History Depression (Acute) Diverticulosis of large intestine (Inactive 06/09/11) Hyperlipidemia (Chronic 06/09/11) Hypertension (Chronic 06/09/11) Migraine without status migrainosus, not intractable (Inactive 01/13/17) Obstructive sleep apnea syndrome (Chronic 06/09/11) Pneumonia (Acute ~09/2015) Rib fractures (Acute ~1977) Serrated adenoma of colon (Inactive 09/21/17) Surgical History H/O: hysterectomy (Acute) History of colonoscopy with polypectomy (Acute ~02/2017) Hx of appendectomy (Acute) Hx of arthroscopy of left knee (Acute ~2007) Hx of bilateral cataract extraction (Acute ~2011) Hx of hernia repair (Acute ~1993) Hx of repair of right rotator cuff (Acute ~2011) Hx of tonsillectomy (Acute ~1948) Status post correction of deviated nasal septum (Acute ~1997) Status post left knee replacement (Acute ~06/2019) Social History household members: none Smoking Status: Current every day smoker alcohol intake: current Smoking Status: Current every day smoker (3-4 cigs a day and sometimes patient can go a few days without. 09/10/19) alcohol intake frequency: holidays/special occasions only Substance Use Type: does not use Exam Initial Vital Signs Initial Vital Signs: Vital Signs Pulse Rate 74 05/12/20 08:02 Respiratory Rate 22 05/12/20 08:02 Blood Pressure 113/59 L 05/12/20 08:02 Pulse Oximetry 99 05/12/20 08:02 GENERAL: Week alert elderly female HEENT: Head atraumatic,EOMI, pupils reactive, face symmetric, dry mucous membranes, pale conjunctiva CARDIOVASCULAR: Regular rate and rhythm without murmurs, rubs or gallops. RESPIRATORY: Breath sounds equal bilaterally, no wheezes rales or rhonchi. ABDOMEN: Soft, nontender. Normoactive bowel sounds all 4 quadrants. No guarding or rebound. RECTAL: Gross blood : No CVA tenderness EXTREMITIES: Normal range of motion, no clubbing or edema. Neurovascularly intact NEUROLOGICAL: Alert and oriented x4.Normal gait and speech. SKIN: Warm, dry, no laceration, no petechiae, no rashes or lesions. Course Orders Ordered: ED Orders 05/12/20 08:02 EKG-12 Lead Stat 05/12/20 08:06 Complete Blood Count AUTO DIFF Stat Comprehensive Metabolic Panel Stat Lactate (Lactic Acid) Stat Packed Cells Stat Partial Thromboplastin Time Stat Prothrombin Time INR Stat Troponin I Stat Type and Screen Stat 05/12/20 08:16 CT head/brain wo con Stat Sodium Chloride (Normal Saline 0.9%) 1,000 mls @ 150 mls/hr IV CONT BELLO Last Admin: 05/12/20 08:23 Dose: 150 mls/hr Documented by: FLORENTINO Naloxone HCl (Narcan) 0.2 mg IV Q2MIN PRN PRN Reason: Opiate Reversal Pantoprazole Sodium (Protonix) 40 mg IV BID BELLO Discontinued Medications Ondansetron HCl (Zofran) 4 mg IV NOW ONE Stop: 05/12/20 08:03 Last Admin: 05/12/20 08:24 Dose: 4 mg Documented by: FLORENTINO Pantoprazole Sodium (Protonix) 40 mg IV NOW ONE Stop: 05/12/20 08:03 Last Admin: 05/12/20 08:24 Dose: 40 mg Documented by: FLORENTINO Vital Signs Vital signs: Vital Signs - 8 hr 05/12/20 08:02 05/12/20 08:50 Pulse Rate 74 67 Respiratory Rate 22 17 Blood Pressure 113/59 L Blood Pressure [Left Arm] 112/53 L Pulse Oximetry 99 100 MDM - GI Bleed Lab Data Attestation: I reviewed the patient's lab results. Result diagrams: 05/12/20 08:06 05/12/20 08:06 Labs: Lab Results 05/12/20 05/12/20 05/12/20 Range/Units 08:06 08:06 08:06 WBC 13.1 H (4.5-11.0) X10^3/uL RBC 2.87 L (4.0-5.2) X10^6/uL Hgb 9.1 L (12.0-16.0) g/dL Hct 26.6 L (36-46) % MCV 92.6 (80-100) fL MCH 31.5 (26-34) PG MCHC 34.0 (30-36) % RDW 13.0 (11.6-14.8) % Plt Count 291 (150-400) X10^3/uL Neut % (Auto) 87.7 H (50-75) % Lymph % (Auto) 9.9 L (25-40) % [place] % (Auto) 2.3 L (3-14) % Eos % (Auto) 0.0 L (2-4) % Baso % (Auto) 0.1 (0-2) % Neut # (Auto) 50951 H (3768-6790) /uL Lymph # (Auto) 1300 (4643-4634) /uL [place] # (Auto) 300 (0-900) /uL Eos # (Auto) 0 (0-450) /uL Baso # (Auto) 0 (0-100) /uL PT 13.5 H (10.1-12.7) SECONDS INR 1.2 (0.9-1.3) APTT 24 L (26.4-36.2) SECONDS Sodium 139 (137-145) mmol/L Potassium 3.3 L (3.4-5.1) mmol/L Chloride 104 (98-107) mmol/L Carbon Dioxide 28 (22-32) mmol/L BUN 51 H (7-17) mg/dL Creatinine 0.73 (0.52-1.04) mg/dL Estimated GFR > 60.0 (>60) mL/min BUN/Creatinine Ratio 69.9 H (6-22) Glucose 140 H (80-110) mg/dL Lactate (0.7-2.1) mmol/L Calcium 7.8 L (8.4-10.2) mg/dL Total Bilirubin 0.5 (0.2-1.3) mg/dL AST 22 (14-36) IU/L ALT 14 (<35) IU/L Alkaline Phosphatase 41 (38-126) U/L Troponin I (0.01-0.034) ng/mL Total Protein 5.2 L (6.3-8.2) g/dL Albumin 3.0 L (3.5-5.0) g/dL Globulin 2.2 (1.7-4.1) g/dL Albumin/Globulin Ratio 1.4 (1.0-2.8) Blood Type Antibody Screen Crossmatch 05/12/20 05/12/20 05/12/20 Range/Units 08:06 08:06 08:06 WBC (4.5-11.0) X10^3/uL RBC (4.0-5.2) X10^6/uL Hgb (12.0-16.0) g/dL Hct (36-46) % MCV (80-100) fL MCH (26-34) PG MCHC (30-36) % RDW (11.6-14.8) % Plt Count (150-400) X10^3/uL Neut % (Auto) (50-75) % Lymph % (Auto) (25-40) % [place] % (Auto) (3-14) % Eos % (Auto) (2-4) % Baso % (Auto) (0-2) % Neut # (Auto) (5554-6704) /uL Lymph # (Auto) (3499-8479) /uL [place] # (Auto) (0-900) /uL Eos # (Auto) (0-450) /uL Baso # (Auto) (0-100) /uL PT (10.1-12.7) SECONDS INR (0.9-1.3) APTT (26.4-36.2) SECONDS Sodium (137-145) mmol/L Potassium (3.4-5.1) mmol/L Chloride (98-107) mmol/L Carbon Dioxide (22-32) mmol/L BUN (7-17) mg/dL Creatinine (0.52-1.04) mg/dL Estimated GFR (>60) mL/min BUN/Creatinine Ratio (6-22) Glucose (80-110) mg/dL Lactate 2.5 H (0.7-2.1) mmol/L Calcium (8.4-10.2) mg/dL Total Bilirubin (0.2-1.3) mg/dL AST (14-36) IU/L ALT (<35) IU/L Alkaline Phosphatase (38-126) U/L Troponin I < 0.012 (0.01-0.034) ng/mL Total Protein (6.3-8.2) g/dL Albumin (3.5-5.0) g/dL Globulin (1.7-4.1) g/dL Albumin/Globulin Ratio (1.0-2.8) Blood Type AB Positive Antibody Screen Negative Crossmatch See Detail Imaging Data CT scan - head: Radiologist's Impression: PROCEDURE: CT HEAD/BRAIN WO CON INDICATIONS: multiple falls TECHNIQUE: Noncontrast 4.5 mm thick angled axial sections acquired from the foramen magnum to the vertex, with coronal and sagittal reformats. For radiation dose reduction, the following was used: automated exposure control, adjustment of mA and/or kV according to patient size. COMPARISON: [facility], CT, HEAD WITHOUT CONTRAST, 02/27/2012, 17:19. FINDINGS: Image quality: Excellent. CSF spaces: Basal cisterns are patent. No extra-axial fluid collections. The ventricles are dilated but symmetric in size and shape. Brain: No intracranial bleeds or masses. There is cerebral volume loss for age, with resultant ventricular and sulcal prominence. There are periventricular and deep white matter chronic small vessel ischemic changes. There is intracranial internal carotid artery atherosclerosis. Skull and face: Calvarium and visualized facial bones appear intact, without suspicious lesions. Sinuses: Visualized sinuses and mastoids are clear. IMPRESSION: 1. No acute intracranial abnormalities. No intracranial bleed. 2. Cerebral volume loss and chronic microvascular ischemic changes. 3. Symmetrical ventricular dilation may be secondary to central atrophy or normal pressure hydrocephalus. Recommend clinical correlation. Compared to the last exam on , there is minimal change. Dictated by: Kaylin Ryan M.D. on 05/12/2020 at 8:18 ECG Data Attestation: I personally reviewed and interpreted this ECG as follows: Prior ECG tracings: available for review Interpretation: Normal sinus rhythm rate 72 p.r. interval 152 QRS [address] elevation depression or T-wave inversion MDM Narrative Medical decision making narrative: Dr. Pedraza, updated patient's symptoms test results admit to hospitalist keep NPO for likely scope today Dr. singh and updated on patient's symptoms test results is agrees with observation Patient blood pressure initially systolic over 100 she does look pale with gross blood. Hemoglobin is low at 9.1. Her blood pressure does decrease his to the 90s. She has also had multiple syncopal episodes today will give her blood transfusion. She is not tachycardic and remains alert and cooperative. Discharge Plan Departure Patient Disposition: Admitted as Observation Clinical Impression: Acute GI bleeding Discharge Date/Time: 05/12/20 11:10 Admit Date/Time: 05/12/20 09:27 Admit Provider: Abdullahi York
--- NOTE | 2020-05-12 08:16 | DI.CT.S_ITS ---
PROCEDURE: CT HEAD/BRAIN WO CON INDICATIONS: multiple falls TECHNIQUE: Noncontrast 4.5 mm thick angled axial sections acquired from the foramen magnum to the vertex, with coronal and sagittal reformats. For radiation dose reduction, the following was used: automated exposure control, adjustment of mA and/or kV according to patient size. COMPARISON: [facility], CT, HEAD WITHOUT CONTRAST, 02/27/2012, 17:19. FINDINGS: Image quality: Excellent. CSF spaces: Basal cisterns are patent. No extra-axial fluid collections. The ventricles are dilated but symmetric in size and shape. Brain: No intracranial bleeds or masses. There is cerebral volume loss for age, with resultant ventricular and sulcal prominence. There are periventricular and deep white matter chronic small vessel ischemic changes. There is intracranial internal carotid artery atherosclerosis. Skull and face: Calvarium and visualized facial bones appear intact, without suspicious lesions. Sinuses: Visualized sinuses and mastoids are clear. IMPRESSION: 1. No acute intracranial abnormalities. No intracranial bleed. 2. Cerebral volume loss and chronic microvascular ischemic changes. 3. Symmetrical ventricular dilation may be secondary to central atrophy or normal pressure hydrocephalus. Recommend clinical correlation. Compared to the last exam on , there is minimal change. Dictated by: Kaylin Ryan M.D. on 05/12/2020 at 8:18 Approved by: Kaylin Ryan M.D. on 05/12/2020 at 8:22
[2020-05-12 08:18] LABS: Add Manual Diff / Slide Review NO; Basophils Absolute Auto 0 /uL (0-100); Basophils Percent Auto 0.1 % (0-2); Eosinophils Absolute Auto 0 /uL (0-450); Hematocrit 26.6 % (36-46); Hemoglobin 9.1 g/dL (12.0-16.0); Lymphocytes Absolute Auto 1300 /uL (1100-4500); Lymphocytes Percent Auto 9.9 % (25-40); Mean Corpuscular Hemoglobin 31.5 PG (26-34); Mean Corpuscular Volume 92.6 fL (80-100); Monocytes Absolute Auto 300 /uL (0-900); Monocytes Percent Auto 2.3 % (3-14); Neutrophils Absolute Auto 11400 /uL (1500-7000); Neutrophils Percent Auto 87.7 % (50-75); Platelet Count 291 X10^3/uL (150-400); Red Blood Cell Count 2.87 X10^6/uL (4.0-5.2); White Blood Cell Count 13.1 X10^3/uL (4.5-11.0)
[2020-05-12] MEDS: SODIUM CHLORIDE 0.9% 1,000 ML 150 ML IV (08:23)
[2020-05-12 08:24] LABS: INR 1.2 (0.9-1.3); Prothrombin Time 13.5 SECONDS (10.1-12.7)
[2020-05-12] MEDS: ONDANSETRON 4 MG/2 ML INJ IV (08:24)
[2020-05-12] MEDS: PANTOPRAZOLE 40 MG VIAL IV ×2 (08:24→22:20)
[2020-05-12 08:27] LABS: PTT Partial Thromboplastin Tim 24 SECONDS (26.4-36.2)
[2020-05-12 08:28] LABS: Lactate (Lactic Acid) 2.5 mmol/L (0.7-2.1)
[2020-05-12 08:29] LABS: Alanine Aminotransferase 14 IU/L (<35); Albumin Globulin Ratio 1.4 (1.0-2.8); Alkaline Phosphatase 41 U/L (38-126); Aspartate Aminotransferase 22 IU/L (14-36); BUN Creatinine Ratio 69.9 (6-22); Bilirubin Total 0.5 mg/dL (0.2-1.3); Blood Urea Nitrogen 51 mg/dL (7-17); Calcium 7.8 mg/dL (8.4-10.2); Carbon Dioxide 28 mmol/L (22-32); Chloride 104 mmol/L (98-107); Estimated Glomerular Filt Rate > 60.0 mL/min (>60); Globulin 2.2 g/dL (1.7-4.1); Glucose 140 mg/dL (80-110); HEMOLYSIS < 15 (0-50); Potassium 3.3 mmol/L (3.4-5.1); Sodium 139 mmol/L (137-145); Total Protein 5.2 g/dL (6.3-8.2)
[2020-05-12 08:40] LABS: Troponin I < 0.012 ng/mL (0.01-0.034)
[2020-05-12 10:14] LABS: Reflexed Lactate in 2 Hours Y
[2020-05-12 10:37] LABS: Bacteria Urine None Seen; WBC Urine None Seen (0-5/HPF)
--- NOTE | 2020-05-12 10:43 | P.HP_ITS ---
History of Present Illness History of Present Illness Date Patient Seen: 05/12/20 Time Patient Seen: 10:43 Date of Onset of Symptoms: 05/10/20 Chief complaint: Syncope, Vomiting Narrative: Ana Barger is a 74-year-old female with past medical history of hypertension, hyperlipidemia, MADINA, and diverticulosis who presented to the emergency room with dizziness, syncope, melena, and coffee-ground emesis. Patient states that her last meal was now 2 days ago, where she ate at a local restaurant and had physician chips that she thinks tasted slightly off. After that she had an episode of dark stools, which have continued until this morning. She has also had at least 5 episodes of hematemesis with coffee-ground material since yesterday. She complains of a extreme dizziness when standing up, and thing she has passed out a couple of times. She does not think that she hit her head as she usually fell back into the couch. She denies any shortness of breath, chest pain, palpitations. She has is a vague generalized abdominal soreness, not described as pain, that has been present over the past day. Her last colonoscopy was in 2017 where she was found to have a polyp and was recommended to have a 3 year follow-up. She denies any recent NSAID use. In the emergency room, patient's blood pressures were on the low side of normal, but no other remarkable vital signs. Initial labs showed a mild leukocytosis at 13.1, hemoglobin of 9.1, and a platelet of 291. Coags were unremarkable. Initial potassium was 3.3, glucose of 140, troponin negative. Her total protein was 5.2. UA was negative. Emergency room contacted Dr. Pedraza of General surgery, who requested the patient be NPO for possible endoscopy later today. She was given 40 mg of IV Protonix, and transfused a unit of blood for symptomatic anemia and GI bleeding. COVID-19 testing is ordered in anticipation of a possible procedure. She is admitted to the medicine service under observation status at this time. Patient History Medical History Depression (Acute) Diverticulosis of large intestine (Inactive 06/09/11) Hyperlipidemia (Chronic 06/09/11) Hypertension (Chronic 06/09/11) Migraine without status migrainosus, not intractable (Inactive 01/13/17) Obstructive sleep apnea syndrome (Chronic 06/09/11) Pneumonia (Acute ~09/2015) Rib fractures (Acute ~1977) Serrated adenoma of colon (Inactive 09/21/17) Surgical History H/O: hysterectomy (Acute) History of colonoscopy with polypectomy (Acute ~02/2017) Hx of appendectomy (Acute) Hx of arthroscopy of left knee (Acute ~2007) Hx of bilateral cataract extraction (Acute ~2011) Hx of hernia repair (Acute ~1993) Hx of repair of right rotator cuff (Acute ~2011) Hx of tonsillectomy (Acute ~1948) Status post correction of deviated nasal septum (Acute ~1997) Status post left knee replacement (Acute ~06/2019) Family & Social History Social History: household members none Safety & Behavioral: Feels Safe in Current Yes Environment Tobacco & Substance use: Smoking Status Current every day smoker alcohol intake current alcohol intake frequency holiday/special occasion Substance Use Type does not use Meds Home Medications and Allergies Home Medications Medication Instructions Recorded Confirmed Type multivitamin 1 cap PO BEDTIME #0 10/05/11 09/10/19 History aspirin 81 mg tablet,delayed 81 mg PO DAILY tab 09/10/19 09/10/19 History release atenolol 50 mg tablet 50 mg PO DAILY #90 tab 09/10/19 09/10/19 Rx atorvastatin 20 mg tablet 20 mg PO BEDTIME #90 tab 09/10/19 09/10/19 Rx escitalopram oxalate 10 mg tablet 10 mg PO BEDTIME #90 tab 09/10/19 09/10/19 Rx hydrochlorothiazide 25 mg tablet 25 mg PO BEDTIME #90 tab 09/10/19 09/10/19 Rx naproxen sodium 220 mg capsule 440 mg PO BEDTIME PRN 09/10/19 09/10/19 History metoprolol succinate 50 mg 50 mg PO QDAY #90 ter 04/15/20 Rx tablet,extended release 24 hr Allergies Allergy/AdvReac Type Severity Reaction Status Date / Time Penicillins [PENICILLINS] Allergy Intermediate Hives Verified 05/12/20 08:07 adhesive [ADHESIVE] Allergy Mild RASH Verified 05/12/20 08:07 CHIVES Allergy Severe ANAPHYLAXIS Uncoded 05/12/20 08:07 Review of Systems Review of Systems Narrative: All other systems reviewed with the patient and are negative unless otherwise stated. Exam Vital Signs (past 8 hours): - 05/12/20 08:02 05/12/20 08:50 05/12/20 10:03 Temperature Pulse Rate 74 67 67 Respiratory Rate 22 17 14 Blood Pressure 113/59 L Blood Pressure [Left Arm] 112/53 L 107/55 L Pulse Oximetry 99 100 100 05/12/20 10:20 05/12/20 10:22 05/12/20 10:36 Temperature 97.5 F L 98.4 F Pulse Rate 68 68 73 Respiratory Rate 24 18 24 Blood Pressure 90/43 L 112/62 Blood Pressure [Left Arm] 122/57 L Pulse Oximetry 99 Oxygen Delivery Method Room Air Narrative Exam Narrative: GENERAL APPEARANCE: Well developed, well nourished, elderly female appears stated age in no acute distress. Slight pallor SKIN: Inspection of the skin reveals no rashes, ulcerations or petechiae. HEENT: Normocephalic atraumatic, extraocular muscles are intact, oropharynx is clear and mucous membranes are slightly dry, neck is supple without adenopathy NECK: Supple and symmetric. There was no thyroid enlargement, and no tenderness, or masses were felt. CHEST: Normal AP diameter and normal contour without any kyphoscoliosis. LUNGS: Auscultation of the lungs revealed no wheezes, rhonchi, or rales. CARDIOVASCULAR: There was a regular rate and rhythm without any murmurs, gallop s, rubs. Peripheral pulses were 2+ and symmetric. ABDOMEN: Soft and nontender with normal bowel sounds. No ascites was noted. MUSCULOSKELETAL: There was no tenderness or effusions noted. Muscle strength and tone were normal. EXTREMITIES: No cyanosis, clubbing or edema. NEUROLOGIC: Alert and oriented x 3. Normal affect. Strength is +5/5 in the Upper Extremities and Lower Extremities Bilaterally. Sensation to touch was normal. Objective ECG Impression: Normal sinus rhythm with no evidence of ischemia. Imaging CT scan - head: Radiologist's impression: IMPRESSION: 1. No acute intracranial abnormalities. No intracranial bleed. 2. Cerebral volume loss and chronic microvascular ischemic changes. 3. Symmetrical ventricular dilation may be secondary to central atrophy or normal pressure hydrocephalus. Recommend clinical correlation. Compared to the last exam on , there is minimal change. Labs Result Diagrams: 05/12/20 08:06 05/12/20 08:06 Labs: Laboratory Results - last 24 hr 05/12/20 05/12/20 05/12/20 08:06 08:06 08:06 WBC 13.1 H RBC 2.87 L Hgb 9.1 L Hct 26.6 L MCV 92.6 MCH 31.5 MCHC 34.0 RDW 13.0 Plt Count 291 Neut % (Auto) 87.7 H Lymph % (Auto) 9.9 L [place] % (Auto) 2.3 L Eos % (Auto) 0.0 L Baso % (Auto) 0.1 Neut # (Auto) 70939 H Lymph # (Auto) 1300 [place] # (Auto) 300 Eos # (Auto) 0 Baso # (Auto) 0 PT 13.5 H INR 1.2 APTT 24 L Sodium 139 Potassium 3.3 L Chloride 104 Carbon Dioxide 28 BUN 51 H Creatinine 0.73 Estimated GFR > 60.0 BUN/Creatinine Ratio 69.9 H Glucose 140 H Lactate Calcium 7.8 L Total Bilirubin 0.5 AST 22 ALT 14 Alkaline Phosphatase 41 Troponin I Total Protein 5.2 L Albumin 3.0 L Globulin 2.2 Albumin/Globulin Ratio 1.4 Blood Type Antibody Screen Crossmatch 05/12/20 05/12/20 05/12/20 08:06 08:06 08:06 WBC RBC Hgb Hct MCV MCH MCHC RDW Plt Count Neut % (Auto) Lymph % (Auto) [place] % (Auto) Eos % (Auto) Baso % (Auto) Neut # (Auto) Lymph # (Auto) [place] # (Auto) Eos # (Auto) Baso # (Auto) PT INR APTT Sodium Potassium Chloride Carbon Dioxide BUN Creatinine Estimated GFR BUN/Creatinine Ratio Glucose Lactate 2.5 H Calcium Total Bilirubin AST ALT Alkaline Phosphatase Troponin I < 0.012 Total Protein Albumin Globulin Albumin/Globulin Ratio Blood Type AB Positive Antibody Screen Negative Crossmatch See Detail Assessment & Plan Assessment & Plan narrative: Ana Barger is a 74-year-old female with past medical history of depression, hypertension, hyperlipidemia, MADINA, and diverticulosis who presented to the emergency room with dizziness, syncope, me ehsan, and coffee-ground emesis. She is admitted to Medicine with a GI bleed. 1. Acute blood loss anemia secondary to GI bleeding -patient presented with both melena and coffee-ground emesis. BUN is elevated. Source is likely upper given history and lab findings. C-scope 2017 with an adenoma with follow up recommendation of 3 years. Patient denies recent NSAID use and orthopedic notes from outpatient states that the patient was using Tylenol for pain control. -baseline hemoglobin of approximately 12 based on prior lab results, presented with a hemoglobin of 9.1. MCV is normal at 92.6 indicating a more acute source. -will send off a stool study if the patient has another episode of loose stools as the patient reported eating out prior to symptoms starting. -NPO/IV fluids, follow up diet recommendations after endoscopy. -continue IV Protonix b.i.d. -emergency room as contacted surgery, Dr. Pedraza, who may be able to perform endoscopy later today, will await formal recommendations after evaluation. -COVID-19 testing will be ordered in anticipation for endoscopy. 2. Hypertension -will hold home medications of metoprolol, atenolol, and HCTZ 3. Hyperlipidemia, chronic -continue home Lipitor when able to tolerate p.o. intake 4. Depression, chronic -continue home escitalopram when able to tolerate p.o. intake Code: Full, patient elects her surrogate decision maker as her sister Dispo: Admitted under inpatient status for GI bleeding. DVT: SCDs given active GI bleeding COVID-19 COVID-19 status: Result pending
[2020-05-12 10:45] LABS: RBC Urine 0-1/HPF (0-5/HPF)
[2020-05-12 10:46] LABS: Culture Indicated Urine Cult Not Indicated
[2020-05-12 11:03] LABS: Lactate 2HR (Lactic Acid Rflx) 1.3 mmol/L (0.7-2.1)
--- NOTE | 2020-05-12 11:12 | PC.NURSE ---
patient blood paused (only in the TAR) at 1100 to go upstairs. The infusion was still running.
--- NOTE | 2020-05-12 11:47 | PC.ADMIT ---
[email or web address] Admission Note: The patient,Ana Barger,74 y/o, was given written information regarding hospital policies, unit procedures and contact persons. Patient's smoking status: Current every day smoker. Vital Signs - 8 hr 05/12/20 08:02 05/12/20 08:50 05/12/20 10:03 Temperature Pulse Rate 74 67 67 Respiratory Rate 22 17 14 Blood Pressure 113/59 L Blood Pressure [Left Arm] 112/53 L 107/55 L Pulse Oximetry 99 100 100 05/12/20 10:20 05/12/20 10:22 05/12/20 10:36 Temperature 97.5 F L 98.4 F Pulse Rate 68 68 73 Respiratory Rate 24 18 24 Blood Pressure 90/43 L 112/62 Blood Pressure [Left Arm] 122/57 L Pulse Oximetry 99 05/12/20 11:09 Temperature Pulse Rate 73 Respiratory Rate 22 Blood Pressure 112/62 Blood Pressure [Left Arm] Pulse Oximetry 98
--- NOTE | 2020-05-12 11:48 | PC.NURSE ---
Addendum entered by [place] Franco R.N. 05/12/20 13:59: Patients first unit of blood finished at 1330. H&H was going to drawn at 1430 to see what crit was. But patient is going to go down for her egd and colonoscopy. will get lab when patients gets back to the floor. she had 2u of prbc, but wants to see what crit is first. She is going to be leaving via wheel chair in a few minutes for procedure. Original Note: Patient admitted to the floor at 1100. VSS. Temp 99.0. Crit 26.6. Patient has 1u of PRBCs up and transfusing, started in the ER. She denies any abdominal discomfort and BT+x4. Patient is a 1person assist with walking and will use the walker as she has previously had some falls at home from being weak. She has been having some bloody black stools, and coffee ground emesis at home. Since being in the ER and admitted to the floor she has not had any nausea/ vomiting or bowel movements. We will guiac her stool when she goes. Her skin is clear, She has 2 iv's first is in l.ac and is an 18g, using this for blood and the second iv is in her l.hand, which is heplocked. She is lying on her back resting, she is suppose to go for and EGD sometime today. Unsure of time yet. Patient had a CT scan done in the ER and per ER nurse this was negative. She did have a fall at home, hitting her head from being weak. NPO at this time, states that she has not eaten any food for the past couple of days. She is swabbing her mouth with a toothette now.
[2020-05-12 11:50] LABS: COVID19 -Nasal RAPID Negative (Negative)
--- NOTE | 2020-05-12 15:39 | PM.CN ---
History of Present Illness Consult details Date Patient Seen: 05/12/20 Time Patient Seen: 15:39 Chief complaint: Syncope, Vomiting Reason for consult: Upper intestinal bleeding Requesting provider: Shayna Lilly Narrative: The patient is a woman who began to have black bowel movements on Monday. She developed coffee-ground emesis earlier today she passed out multiple times and ultimately came to the emergency room. She was given a transfusion at the time of presentation she was markedly hypotensive item proved with a fluid challenge and transfusion she has had no abdominal pain and she has never had these symptoms before. Last colonoscopy was 3 years ago. Meds Home Medications and Allergies Home Medications Medication Instructions Recorded Confirmed Type multivitamin 1 cap PO BEDTIME #0 10/05/11 05/12/20 History aspirin 81 mg tablet,delayed 81 mg PO DAILY tab 09/10/19 05/12/20 History release atorvastatin 20 mg tablet 20 mg PO BEDTIME #90 tab 09/10/19 05/12/20 Rx escitalopram oxalate 10 mg tablet 10 mg PO BEDTIME #90 tab 09/10/19 05/12/20 Rx hydrochlorothiazide 25 mg tablet 25 mg PO BEDTIME #90 tab 09/10/19 05/12/20 Rx naproxen sodium 220 mg capsule 440 mg PO BEDTIME PRN 09/10/19 05/12/20 History metoprolol succinate 50 mg 50 mg PO QDAY #90 ter 04/15/20 05/12/20 Rx tablet,extended release 24 hr Allergies Allergy/AdvReac Type Severity Reaction Status Date / Time Penicillins [PENICILLINS] Allergy Intermediate Hives Verified 05/12/20 08:07 adhesive [ADHESIVE] Allergy Mild RASH Verified 05/12/20 08:07 CHIVES Allergy Severe ANAPHYLAXIS Uncoded 05/12/20 08:07 Review of Systems Review of Systems Narrative: Patient has no heart problems chest pain. She does have hypertension. No breathing issues. No cough cold. No bright red blood per rectum. No seizures. Exam Vital Signs (past 8 hours): - 05/12/20 08:02 05/12/20 08:50 05/12/20 10:03 Temperature Pulse Rate 74 67 67 Respiratory Rate 22 17 14 Blood Pressure 113/59 L Blood Pressure [Left Arm] 112/53 L 107/55 L Pulse Oximetry 99 100 100 05/12/20 10:20 05/12/20 10:22 05/12/20 10:36 Temperature 97.5 F L 98.4 F Pulse Rate 68 68 73 Respiratory Rate 24 18 24 Blood Pressure 90/43 L 112/62 Blood Pressure [Left Arm] 122/57 L Pulse Oximetry 99 05/12/20 10:46 05/12/20 11:09 05/12/20 13:17 Temperature 99.0 F 99.3 F Pulse Rate 69 73 66 Respiratory Rate 14 22 14 Blood Pressure 120/77 112/62 113/62 Blood Pressure [Left Arm] Pulse Oximetry 98 05/12/20 14:27 Temperature 99.3 F Pulse Rate 67 Respiratory Rate 16 Blood Pressure 123/68 Blood Pressure [Left Arm] Pulse Oximetry 100 Oxygen Delivery Method Room Air Narrative Exam Narrative: Cooperative pleasant woman in no apparent distress. Her lungs are clear to auscultation no rales or rhonchi. Heart regular rate and rhythm no murmur gallop. Abdomen is scaphoid with multiple scars. No hernias appreciated. There is mild left upper quadrant tenderness. No guarding. She is alert and oriented x3. Speech rate and content are appropriate. Affect is appropriate. Objective Labs Result Diagrams: 05/12/20 08:06 05/12/20 08:06 Labs: Laboratory Results - last 24 hr 05/12/20 05/12/20 05/12/20 08:06 08:06 08:06 WBC 13.1 H RBC 2.87 L Hgb 9.1 L Hct 26.6 L MCV 92.6 MCH 31.5 MCHC 34.0 RDW 13.0 Plt Count 291 Neut % (Auto) 87.7 H Lymph % (Auto) 9.9 L [place] % (Auto) 2.3 L Eos % (Auto) 0.0 L Baso % (Auto) 0.1 Neut # (Auto) 18048 H Lymph # (Auto) 1300 [place] # (Auto) 300 Eos # (Auto) 0 Baso # (Auto) 0 PT 13.5 H INR 1.2 APTT 24 L Sodium 139 Potassium 3.3 L Chloride 104 Carbon Dioxide 28 BUN 51 H Creatinine 0.73 Estimated GFR > 60.0 BUN/Creatinine Ratio 69.9 H Glucose 140 H Lactate Calcium 7.8 L Total Bilirubin 0.5 AST 22 ALT 14 Alkaline Phosphatase 41 Troponin I Total Protein 5.2 L Albumin 3.0 L Globulin 2.2 Albumin/Globulin Ratio 1.4 Urine RBC Urine WBC Urine Bacteria Ur Culture Indicated? COVID-19 PCR Blood Type Antibody Screen Crossmatch 05/12/20 05/12/20 05/12/20 08:06 08:06 08:06 WBC RBC Hgb Hct MCV MCH MCHC RDW Plt Count Neut % (Auto) Lymph % (Auto) [place] % (Auto) Eos % (Auto) Baso % (Auto) Neut # (Auto) Lymph # (Auto) [place] # (Auto) Eos # (Auto) Baso # (Auto) PT INR APTT Sodium Potassium Chloride Carbon Dioxide BUN Creatinine Estimated GFR BUN/Creatinine Ratio Glucose Lactate 2.5 H Calcium Total Bilirubin AST ALT Alkaline Phosphatase Troponin I < 0.012 Total Protein Albumin Globulin Albumin/Globulin Ratio Urine RBC Urine WBC Urine Bacteria Ur Culture Indicated? COVID-19 PCR Blood Type AB Positive Antibody Screen Negative Crossmatch See Detail 05/12/20 05/12/20 05/12/20 09:35 10:45 10:48 WBC RBC Hgb Hct MCV MCH MCHC RDW Plt Count Neut % (Auto) Lymph % (Auto) [place] % (Auto) Eos % (Auto) Baso % (Auto) Neut # (Auto) Lymph # (Auto) [place] # (Auto) Eos # (Auto) Baso # (Auto) PT INR APTT Sodium Potassium Chloride Carbon Dioxide BUN Creatinine Estimated GFR BUN/Creatinine Ratio Glucose Lactate 1.3 Calcium Total Bilirubin AST ALT Alkaline Phosphatase Troponin I Total Protein Albumin Globulin Albumin/Globulin Ratio Urine RBC 0-1/hpf Urine WBC None seen Urine Bacteria None seen Ur Culture Indicated? Cult not indicated COVID-19 PCR Negative Blood Type Antibody Screen Crossmatch Assessment & Plan Assessment & Plan narrative: Upper GI bleed. Plan to perform an EGD with general anesthesia. Patient has been having hematemesis up until today. I would like to protect her airway. Given her hypotension, acute blood loss anemia, history of syncope I think she is quite fragile and would like to avoid any aspiration of blood or compromise during her EGD. Thus iron anesthesiologist is available to place the patient completely asleep with an ET tube to protect the airway.
--- NOTE | 2020-05-12 15:45 | PM.PREOP ---
Pre-operative Note COVID-19 COVID-19 status: Negative Result date/Date tested (Pos, Neg/Pending): 05/12/20 Interval Note History & Physical reviewed/Exam performed by Physician: Yes Changes to H&P: No
[2020-05-12] MEDS: EPINEPHrine 1 MG/10 ML SYRINGE IV (16:15)
--- NOTE | 2020-05-12 16:26 | P.OP.ENDO_ITS ---
Operative Date/Time/Diagnoses Date of procedure: 05/12/20 Time of procedure: 16:00 Pre-op diagnosis: Upper GI bleed Post-op diagnosis: same (Secondary to pyloric channel/duodenal ulcer and duodenitis. Schatzki ring) Procedure & Clinicians Study performed: EGD with injection of epinephrine Same procedure as scheduled: Yes Indications: Upper GI bleed determine cause. Surgeon: Suraj Pedraza Procedure Notes SCOAP/Timeout: Perform Procedure in detail: The patient underwent general endotracheal anesthesia to protect her airway from aspiration should there be a large amount of blood in her stomach. The patient had ablate block placed protect her teeth. The scope was inserted and advanced under direct vision into the esophagus. The esophagus was normal. At 35 cm however there was noted to be a Schatzki ring. There was no significant narrowing however at that ring. The stomach insufflated well. There were small wispy black mucoid deposits scattered on the surface of the stomach. These irrigated often the stomach with a wall actually looked fairly normal. The pyloric channel was deformed and there was reddened and edema id area. Just beyond it there was a visible ulcer covered in fibrinous exudate. T here is no visible vessel in it. I passed beyond into the duodenal bulb which was inflamed and had small punctate areas which had bled recently. The scope was passed into the 2nd and 3rd parts of the duodenum which were normal. The scope was brought back into the stomach and retroflexed. The proximal stomach was normal in appearance. The scope was straightened and I injected 5 area surrounding this ulcer with 1 cc of epinephrine 0.1 mg in each injection. There was some leakage in places sewed the entire dose was not necessarily administered. The scope was brought back into the stomach and for random biopsies were taken for H pylori testing. The scope was removed and the patient tolerated the procedure well. Scope withdrawal time: Not applicable Sedation minutes: 0 (Done under general anesthesia to protect her airway and because of the history of syncope and hypotension.) Findings: duodenal ulcer (Pyloric channel as well) and other findings (Schatzki ring) Specimen(s): other (Random stomach biopsies) Complications: none Post-procedure Recommendations: Other recommendation (EGD 12 weeks to confirm healing) Plan for aftercare: Double dose proton pump inhibitors and I would empirically treat for H pylori. Follow up: months (1) Disposition: PACU
--- NOTE | 2020-05-12 16:38 | SUR.PHASEI ---
HOB elevated, resp unlabored, report given to acute care RN, Ice chips given.
--- NOTE | 2020-05-12 16:55 | SUR.PHASEI ---
1645 to room 211, bed down and locked, call light within reach. Pt became nauseated after transferring herself into the bed. No questions from staff. Resp unlabored, no difficulty swallowing.
[2020-05-12] MEDS: SODIUM CHLORIDE 0.9% 1,000 ML 80 ML IV (17:16)
[2020-05-12] MEDS: PROCHLORPERAZINE 10 MG/2 ML VIAL 5 MG IV (17:27)
[2020-05-12 17:43] LABS: Hematocrit 31.3 % (36-46); Hemoglobin 10.9 g/dL (12.0-16.0)
--- NOTE | 2020-05-12 18:45 | PC.NURSE ---
Addendum entered by Jennifer Hua R.N. 05/12/20 23:37: 2245: Patient able to sit up, drink apple juice & take HS medications. Denies pain or nausea, reported I feel so much better. Ambulated to BR, voided 400 ml, back to bed. Weak, able to transfer with 1 assist/fww/gait belt. 2330: Bed alarming, patient found in the bathroom sitting on the toilet, black tarry stool on bed linens & a trail of black liquid stool on floor between bed & toilet. 4 staff members in room to clean floor, Lorie the oncoming NOC RN assisted patient with sponge bath & gown change. Pull-up in place. Pt back to bed, told me I feel so weak, encouraged to rest at this time. Staff cleaned floor/bed/toilet, I then called housekeeping to have them mop floor. Addendum entered by Jennifer Hua R.N. 05/12/20 19:35: Patient still sleeping, awoke to loud voice & nurse hand on her shoulder, when asked if OK she said I'm nauseated, I told her she could just sleep for now, she said thank you. I notified Ang LEE of H&H result, he said she does not need the 2nd unit of PRBC's. Original Note: Post-op notes: At 1650 Ana was brought back from PACU/OR via gurney, able to transfer self from rkorbel over to bed with minimal assist, appearing exhausted. Shortly after she said I'm going to throw up, and began dry heaving. Staff assist to help her sit up at 90 degrees, threw up 100 ml emesis in bag. She told me I always get sick after I have anesthesia. I notified Dr Pedraza of nausea/emesis, new order for Compazine given to patient, within 5 minutes she fell asleep. VS are stable, BP hypertensive but less so after compazine given and she has been able to rest. She denies abdomen/epigastric pain, does report sore throat, teaching explained about EGD/airway protection used during procedure. Stat H&H result of 10.9 & 31.3. Will notify MD of result.
[2020-05-12] MEDS: metroNIDAZOLE 500 MG TABLET PO (22:19)
[2020-05-12] MEDS: hydroCHLOROthiazide 25 MG TABLET PO (22:19)
[2020-05-12] MEDS: ESCITALOPRAM 10 MG TABLET PO (22:20)
[2020-05-12] MEDS: CLARITHROMYCIN 500 MG TABLET PO (22:20)
[2020-05-12] MEDS: ATORVASTATIN 20 MG TABLET PO (22:20)
[2020-05-13] MEDS: SODIUM CHLORIDE 0.9% 1,000 ML 80 ML IV (05:54)
[2020-05-13 05:58] LABS: Add Manual Diff / Slide Review NO; Basophils Absolute Auto 100 /uL (0-100); Basophils Percent Auto 0.7 % (0-2); Eosinophils Absolute Auto 0 /uL (0-450); Eosinophils Percent Auto 0.2 % (2-4); Hematocrit 26.7 % (36-46); Hemoglobin 9.2 g/dL (12.0-16.0); Lymphocytes Absolute Auto 3600 /uL (1100-4500); Lymphocytes Percent Auto 22.9 % (25-40); Mean Corpuscular HGB Conc 34.5 % (30-36); Mean Corpuscular Hemoglobin 30.6 PG (26-34); Mean Corpuscular Volume 88.6 fL (80-100); Monocytes Absolute Auto 1000 /uL (0-900); Monocytes Percent Auto 6.6 % (3-14); Neutrophils Absolute Auto 10900 /uL (1500-7000); Neutrophils Percent Auto 69.6 % (50-75); Platelet Count 230 X10^3/uL (150-400); Red Blood Cell Count 3.01 X10^6/uL (4.0-5.2); Red Cell Distribution Width 15.2 % (11.6-14.8); White Blood Cell Count 15.7 X10^3/uL (4.5-11.0)
[2020-05-13 05:59] VITALS: BP 98/52; PULSE 72; RESP 18; TEMP 36.9; O2SAT 97
[2020-05-13 06:13] LABS: BUN Creatinine Ratio 44.6 (6-22); Blood Urea Nitrogen 29 mg/dL (7-17); Calcium 7.8 mg/dL (8.4-10.2); Carbon Dioxide 27 mmol/L (22-32); Chloride 108 mmol/L (98-107); Estimated Glomerular Filt Rate > 60.0 mL/min (>60); Glucose 96 mg/dL (80-110); HEMOLYSIS < 15 (0-50); Magnesium 1.8 mg/dL (1.6-2.3); Potassium 2.9 mmol/L (3.4-5.1); Sodium 138 mmol/L (137-145)
--- NOTE | 2020-05-13 06:20 | PC.NURSE ---
H/H result this AM 9.2/26.7 DAVID Marcelo has been notified and made aware. Received verbal order to stop fluids now and repeat H/H at noon time. Order has been put in. Pt is now on saline lock left hand.
[2020-05-13] MEDS: POTASSIUM CHLORIDE 20 MEQ/15 ML UDC PO (06:50)
[2020-05-13] MEDS: POTASSIUM CHLORIDE 40 MEQ in SODIUM CHLORIDE 0.9% 500 ML 130 ML IV (06:51)
[2020-05-13 07:35] VITALS: BP 121/69; PULSE 76; RESP 18; TEMP 37.1; O2SAT 100
--- NOTE | 2020-05-13 08:34 | CM.DANOTE ---
Addendum entered by Gillian Gonzalez R.N. 05/13/20 08:40: Patient does not have current P.T. orders. Original Note: DCP: Case received, EMR reviewed and met with patient. Introduced self and role. Was able to meet with patient and obtain information regarding her baseline activity level and living situation. DCP assessment completed with information currently available. Patient is a 74 year old female who admitted yesterday morning to the care of the hospitalist team. PCP: Dr. Devine. Payer: confirmed: Medicare/[facility]. Patient came to the hospital via ambulance secondary to syncope, weakness, and vomiting. She had also noted some tarry black stool. She holds current diagnosis of anemia related to GI bleed. Patient having a scope today. Met with patient in her room. She was sitting up in bed, alert and oriented, and pleasant. She resides here in [place], and lives alone. She is independent at baseline. She does have a sister who lives locally, named Vane. P: DCP to continue to follow for any needs. Will see if she has P.T. orders, as well. Gillian Gonzalez RN/Supervisor Channel Process
[2020-05-13] MEDS: PANTOPRAZOLE 40 MG VIAL IV ×2 (09:46→21:07)
[2020-05-13] MEDS: metroNIDAZOLE 500 MG TABLET PO ×3 (09:46→21:07)
[2020-05-13] MEDS: CLARITHROMYCIN 500 MG TABLET PO ×2 (09:46→21:08)
--- NOTE | 2020-05-13 10:39 | P.PN_ITS ---
Subjective Subjective Date Patient Seen: 05/13/20 Time Patient Seen: 10:39 Interval history: Ana Barger is a 74-year-old female with past medical history of hypertension, hyperlipidemia, MADINA, and diverticulosis who presented to the emergency room with dizziness, syncope, melena, and coffee-ground emesis. She underwent an upper endoscopy yesterday with Dr. Pedraza and was found to have a duodenal ulcer as well as a Schatzki ring. She was started on empiric treatment for H pylori and remains on IV Protonix twice daily. She is tolerating clears this morning. She still feels quite weak today, but denies any dizziness, chest pain, palpitations, or shortness of breath. She has not tried to get up and walk today. After 1 unit PRBC transfusion yesterday her hemoglobin improved from 9.1-10.9, but was down to 9.2 this morning. She also had another melanotic stool overnight. She has a repeat CBC due later today. Likely will need to stay another day to confirm stability and no further bleeding. Exam Vital Signs (past 8 hours): - 05/13/20 05:59 05/13/20 07:35 Temperature 98.4 F 98.8 F Pulse Rate 72 76 Respiratory Rate 18 18 Blood Pressure 98/52 L 121/69 Pulse Oximetry 97 100 Oxygen Delivery Method Room Air Oxygen Flow Rate 0 Narrative Exam Narrative: GENERAL APPEARANCE: Well developed, well nourished, elderly female appears stated age in no acute distress. Slight pallor SKIN: Inspection of the skin reveals no rashes, ulcerations or petechiae. HEENT: Normocephalic atraumatic, extraocular muscles are intact, oropharynx is clear and mucous membranes are slightly dry, neck is supple without adenopathy NECK: Supple and symmetric. There was no thyroid enlargement, and no tenderness, or masses were felt. CHEST: Normal AP diameter and normal contour without any kyphoscoliosis. LUNGS: Auscultation of the lungs revealed no wheezes, rhonchi, or rales. CARDIOVASCULAR: There was a regular rate and rhythm without any murmurs, gallops, rubs. Peripheral pulses were 2+ and symmetric. ABDOMEN: Soft and nontender with normal bowel sounds. No ascites was noted. MUSCULOSKELETAL: There was no tenderness or effusions noted. Muscle strength and tone were normal. EXTREMITIES: No cyanosis, clubbing or edema. NEUROLOGIC: Alert and oriented x 3. Normal affect. Strength is +5/5 in the Upper Extremities and Lower Extremities Bilaterally. Sensation to touch was normal. Objective Labs Result Diagrams: 05/13/20 05:45 05/13/20 05:45 Labs: Laboratory Results - last 24 hr 05/12/20 05/12/20 05/12/20 08:06 09:35 10:45 WBC RBC Hgb Hct MCV MCH MCHC RDW Plt Count Neut % (Auto) Lymph % (Auto) [place] % (Auto) Eos % (Auto) Baso % (Auto) Neut # (Auto) Lymph # (Auto) [place] # (Auto) Eos # (Auto) Baso # (Auto) Sodium Potassium Chloride Carbon Dioxide BUN Creatinine Estimated GFR BUN/Creatinine Ratio Glucose Lactate 1.3 Calcium Magnesium Urine RBC 0-1/hpf Urine WBC None seen Urine Bacteria None seen Ur Culture Indicated? Cult not indicated COVID-19 PCR Crossmatch See Detail 05/12/20 05/12/20 05/13/20 10:48 17:27 05:45 WBC 15.7 H RBC 3.01 L Hgb 10.9 L 9.2 L Hct 31.3 L 26.7 L MCV 88.6 D MCH 30.6 MCHC 34.5 RDW 15.2 H Plt Count 230 Neut % (Auto) 69.6 Lymph % (Auto) 22.9 L [place] % (Auto) 6.6 Eos % (Auto) 0.2 L Baso % (Auto) 0.7 Neut # (Auto) 65383 H Lymph # (Auto) 3600 [place] # (Auto) 1000 H Eos # (Auto) 0 Baso # (Auto) 100 Sodium Potassium Chloride Carbon Dioxide BUN Creatinine Estimated GFR BUN/Creatinine Ratio Glucose Lactate Calcium Magnesium Urine RBC Urine WBC Urine Bacteria Ur Culture Indicated? COVID-19 PCR Negative Crossmatch 05/13/20 05:45 WBC RBC Hgb Hct MCV MCH MCHC RDW Plt Count Neut % (Auto) Lymph % (Auto) [place] % (Auto) Eos % (Auto) Baso % (Auto) Neut # (Auto) Lymph # (Auto) [place] # (Auto) Eos # (Auto) Baso # (Auto) Sodium 138 Potassium 2.9 L Chloride 108 H Carbon Dioxide 27 BUN 29 H Creatinine 0.65 Estimated GFR > 60.0 BUN/Creatinine Ratio 44.6 H Glucose 96 Lactate Calcium 7.8 L Magnesium 1.8 Urine RBC Urine WBC Urine Bacteria Ur Culture Indicated? COVID-19 PCR Crossmatch Assessment & Plan Assessment & Plan narrative: Ana Barger is a 74-year-old female with past medical history of depression, hypertension, hyperlipidemia, MADINA, and diverticulosis who presented to the emergency room with dizziness, syncope, melena, and coffee-ground emesis. She is admitted to Medicine with a GI bleed secondary to duodenal ulcer. 1. Acute blood loss anemia secondary to GI bleeding -patient presented with both melena and coffee-ground emesis. BUN was elevated. C-scope 2017 with an adenoma with follow up recommendation of 3 years. Patient denies recent NSAID use and orthopedic notes from outpatient states that the patient was using Tylenol for pain control. -baseline hemoglobin of approximately 12 based on prior lab results, presented with a hemoglobin of 9.1. MCV is normal at 92.6 indicating a more acute source. -will send off a stool study if the patient has another episode of loose stools as the patient reported eating out prior to symptoms starting. -continue clears. Endoscopy performed on 05/12 showed a duodenal ulcer and Schatzki ring. She was started on empiric H pylori treatment and remains on IV Protonix twice daily until discharge. -appreciate management by surgery, Dr. Pedraza. -continue to follow H&H today. Can discharge home with 12 week follow-up for repeat endoscopy once hemoglobin has been stable and patient remains asymp tomatic. 2. Hypertension -continue to hold home medications of metoprolol, atenolol, and HCTZ. Her blood pressures have been labile. Will restart if she remains persistently hypertensive. 3. Hyperlipidemia, chronic -continue home Lipitor 4. Depression, chronic -continue home escitalopram Code: Full, patient elects her surrogate decision maker as her sister Dispo: Admitted under inpatient status for GI bleeding, anticipate discharge home likely tomorrow. DVT: SCDs given GI bleeding Quality VTE Deep Vein Thrombosis/Pulmonary Embolism Present on Admission: No
[2020-05-13 11:33] LABS: Hematocrit 28.5 % (36-46); Hemoglobin 9.8 g/dL (12.0-16.0)
[2020-05-13 12:21] VITALS: BP 110/62; PULSE 79; RESP 18; TEMP 36.6; O2SAT 100
[2020-05-13 15:25] VITALS: BP 108/62; PULSE 72; RESP 16; TEMP 36.5
[2020-05-13] MEDS: ESCITALOPRAM 10 MG TABLET PO (21:08)
[2020-05-13] MEDS: ATORVASTATIN 20 MG TABLET PO (21:08)
[2020-05-13 21:16] VITALS: BP 133/59; PULSE 81; RESP 17; TEMP 37.1; O2SAT 97
--- NOTE | 2020-05-13 22:07 | PC.NURSE ---
Addendum entered by Dionne Keen R.N. 05/13/20 22:48: BL calf scd's placed @ hs. No concerns or complaints verbalized by patient. New iv site established after left hand site failed. Original Note: Pt reports feeling washed out and reports does not feel ready for discharge as this shift began. Denies dizziness when up. Denies abdominal pain or nausea. Encouraged to call for staff to assist when needing/desiring out of bed to toilet. Pt reports stools lightening up in color and now green. Collection device placed in toilet to monitor.
[2020-05-14 00:02] VITALS: BP 102/51; PULSE 91; RESP 16; TEMP 36.9; O2SAT 98
--- NOTE | 2020-05-14 00:08 | PC.NURSE ---
Patient is alert and oriented. Breath sounds diminished but CTA with RA sat of 98%. HRR. Denies nausea. BT present and abdomen is soft; evening RN reports she has been having loose, coffee ground colored stools. Voiding without dysuria, frequency or urgency. Able to turn self in bed. Assisted to bathroom with SBA as patient states she is exhausted but denies weakness. Refusing SCD's so educated on DVT prevention and ankle waving. Denies pain. Fall risk score is high (reports falling in past 3 months) and bed alarm is activated.
[2020-05-14 05:46] VITALS: BP 124/71; PULSE 85; RESP 18; TEMP 36.6; O2SAT 97
[2020-05-14 06:00] LABS: Add Manual Diff / Slide Review NO; Basophils Absolute Auto 100 /uL (0-100); Basophils Percent Auto 0.6 % (0-2); Eosinophils Absolute Auto 200 /uL (0-450); Eosinophils Percent Auto 2.2 % (2-4); Hematocrit 25.4 % (36-46); Hemoglobin 8.7 g/dL (12.0-16.0); Lymphocytes Absolute Auto 3200 /uL (1100-4500); Lymphocytes Percent Auto 32.4 % (25-40); Mean Corpuscular HGB Conc 34.2 % (30-36); Mean Corpuscular Hemoglobin 30.7 PG (26-34); Mean Corpuscular Volume 89.5 fL (80-100); Monocytes Absolute Auto 700 /uL (0-900); Monocytes Percent Auto 7.3 % (3-14); Neutrophils Absolute Auto 5700 /uL (1500-7000); Neutrophils Percent Auto 57.5 % (50-75); Platelet Count 229 X10^3/uL (150-400); Red Blood Cell Count 2.83 X10^6/uL (4.0-5.2); Red Cell Distribution Width 15.3 % (11.6-14.8); White Blood Cell Count 9.9 X10^3/uL (4.5-11.0)
[2020-05-14 06:11] LABS: BUN Creatinine Ratio 20.3 (6-22); Blood Urea Nitrogen 13 mg/dL (7-17); Calcium 7.9 mg/dL (8.4-10.2); Carbon Dioxide 28 mmol/L (22-32); Chloride 107 mmol/L (98-107); Estimated Glomerular Filt Rate > 60.0 mL/min (>60); Glucose 98 mg/dL (80-110); HEMOLYSIS < 15 (0-50); Magnesium 1.8 mg/dL (1.6-2.3); Potassium 3.4 mmol/L (3.4-5.1); Sodium 139 mmol/L (137-145)
[2020-05-14] MEDS: SODIUM CHLORIDE 0.9% FLUSH 10 ML IV (09:22)
[2020-05-14] MEDS: PANTOPRAZOLE 40 MG VIAL IV (09:22)
[2020-05-14] MEDS: CLARITHROMYCIN 500 MG TABLET PO (09:22)
[2020-05-14] MEDS: metroNIDAZOLE 500 MG TABLET PO (09:22)
[2020-05-14 09:32] VITALS: BP 156/66; PULSE 87; RESP 16; TEMP 36.7; O2SAT 100
[2020-05-14 12:13] LABS: Hemoglobin 9.6 g/dL (12.0-16.0)
--- NOTE | 2020-05-14 13:48 | P.DS_ITS ---
History of Present Illness History of Present Illness Date Patient Seen: 05/14/20 Time Patient Seen: 13:48 Chief complaint: Syncope, Vomiting Narrative: Ana Barger is a 74-year-old female with past medical history of hypertension, hyperlipidemia, MADINA, and diverticulosis who presented to the emergency room with dizziness, syncope, melena, and coffee-ground emesis. Patient states that her last meal was now 2 days ago, where she ate at a local restaurant and had physician chips that she thinks tasted slightly off. After that she had an episode of dark stools, which have continued until this morning. She has also had at least 5 episodes of hematemesis with coffee-ground material since yesterday. She complains of a extreme dizziness when standing up, and thing she has passed out a couple of times. She does not think that she hit her head as she usually fell back into the couch. She denies any shortness of breath, chest pain, palpitations. She has is a vague generalized abdominal soreness, not described as pain, that has been present over the past day. Her last colonoscopy was in 2017 where she was found to have a polyp and was recommended to have a 3 year follow-up. She denies any recent NSAID use. In the emergency room, patient's blood pressures were on the low side of normal, but no other remarkable vital signs. Initial labs showed a mild leukocytosis at 13.1, hemoglobin of 9.1, and a platelet of 291. Coags were unremarkable. Initi al potassium was 3.3, glucose of 140, troponin negative. Her total protein was 5.2. UA was negative. Emergency room contacted Dr. Pedraza of General surgery, who requested the patient be NPO for possible endoscopy later today. She was given 40 mg of IV Protonix, and transfused a unit of blood for symptomatic anemia and GI bleeding. COVID-19 testing is ordered in anticipation of a possible procedure. She is admitted to the medicine service under observation status at this time. Discharge Providers Provider Date of admission: 05/12/20 09:27 Discharge Date: 05/14/20 Primary care physician: Jayson Devine MD Consults: 05/12/20 16:57 Consult to Discharge Planning Routine Comment: Discharge provider: Abdullahi York DO Summary Hospital Course Discharge Diagnosis: Please see hospital course by problem list noted below. Hospital Course: Ana Barger is a 74-year-old female with past medical history of depression, hypertension, hyperlipidemia, MADINA, and diverticulosis who presented to the emergency room with dizziness, syncope, melena, and coffee-gr ound emesis. She was admitted to Medicine with a GI bleed secondary to duodenal ulcer seen on EGD. Her melena eventually stopped, and she was discharged once hemoglobin remained stable. She required 1U PRBC for symptomatic anemia only on admission. She was empirically started on treatment for H. Pylori and she should continue to take omeprazole 40 mg BID until she follows up with surgery in appro ximately one month. 1. Acute blood loss anemia secondary to upper GI bleeding / duodenal ulcer. -patient presented with both melena and coffee-ground emesis. BUN was elevated. C-scope 2017 with an adenoma with follow up recommendation of 3 years. Patient denies recent NSAID use (although endorsed taking 4 tabs of naproxen about a week prior to bleeding later in admission) and orthopedic notes from outpatient states that the patient was using Tylenol for pain control. -baseline hemoglobin of approximately 12 based on prior lab results, presented with a hemoglobin of 9.1. MCV is normal at 92.6 indicating a more acute source. -advanced to low residue diet upon discharge. Advised she can likely resume regular diet following discharge. Endoscopy performed on 05/12 showed a duodenal ulcer and Schatzki ring. She was started on empiric H pylori treatment and remains on IV Protonix twice daily until discharge. -appreciate management by surgery, Dr. Pedraza. Follow up in 1 month. With repe at EGD in 3 month. 2. Hypertension -continue to hold home medications of metoprolol, atenolol, and HCTZ. Her blood pressures have been labile but generally on the low side. Advised she may need to restart these as she continues to recover from her anemia / ulcer. 3. Hyperlipidemia, chronic -continue home Lipitor 4. Depression, chronic -continue home escitalopram Dispo: Discharged home Time Spent with Patient Time spent: Greater than 30 minutes Exam Vital Signs (past 8 hours): - 05/14/20 09:32 Temperature 98.1 F Pulse Rate 87 Respiratory Rate 16 Blood Pressure 156/66 H Pulse Oximetry 100 Oxygen Delivery Method Room Air Oxygen Flow Rate 0 Narrative Exam Narrative: GENERAL APPEARANCE: Well developed, well nourished, elderly female appears stated age in no acute distress. Slight pallor SKIN: Inspection of the skin reveals no rashes, ulcerations or petechiae. HEENT: Normocephalic atraumatic, extraocular muscles are intact, oropharynx is clear and mucous membranes are slightly dry, neck is supple without adenopathy NECK: Supple and symmetric. There was no thyroid enlargement, and no tenderness, or masses were felt. CHEST: Normal AP diameter and normal contour without any kyphoscoliosis. LUNGS: Auscultation of the lungs revealed no wheezes, rhonchi, or rales. CARDIOVASCULAR: There was a regular rate and rhythm without any murmurs, gall ops, rubs. Peripheral pulses were 2+ and symmetric. ABDOMEN: Soft and nontender with normal bowel sounds. No ascites was noted. MUSCULOSKELETAL: There was no tenderness or effusions noted. Muscle strength and tone were normal. EXTREMITIES: No cyanosis, clubbing or edema. NEUROLOGIC: Alert and oriented x 3. Normal affect. Strength is +5/5 in the Upper Extremities and Lower Extremities Bilaterally. Sensation to touch was normal. Objective Labs Result Diagrams: 05/14/20 12:00 05/14/20 05:20 Labs: Laboratory Results - last 24 hr 05/14/20 05/14/20 05/14/20 05:20 05:20 12:00 WBC 9.9 RBC 2.83 L Hgb 8.7 L 9.6 L Hct 25.4 L 28.0 L MCV 89.5 MCH 30.7 MCHC 34.2 RDW 15.3 H Plt Count 229 Neut % (Auto) 57.5 Lymph % (Auto) 32.4 [place] % (Auto) 7.3 Eos % (Auto) 2.2 Baso % (Auto) 0.6 Neut # (Auto) 5700 Lymph # (Auto) 3200 [place] # (Auto) 700 Eos # (Auto) 200 Baso # (Auto) 100 Sodium 139 Potassium 3.4 Chloride 107 Carbon Dioxide 28 BUN 13 Creatinine 0.64 Estimated GFR > 60.0 BUN/Creatinine Ratio 20.3 Glucose 98 Calcium 7.9 L Magnesium 1.8 Discharge Plan Discharge Plan Patient Disposition: Home Discharge comment: You were admitted to the hospital for an ulcer in your small intestine, the duodenum. You are being treated empirically for an infection that can cause this ulcer. You should continue the antibiotics for 12 more days and then continue the anti-acid medication for at least a month until you see the surgeons in clinic. Some of your blood pressure medications have been stopped. You should continue to follow your blood pressure and would preferentially restart your metoprolol, probably only half a pill when it is consistently >140/90. You reshma follow up with your PCP for assistance with restarting your BP medications as well. Discharge orders & Medications Prescriptions: New clarithromycin 500 mg Tablet 500 mg PO BID 12 Days Qty: 24 RF: 0 metronidazole 500 mg Tablet 500 mg PO TID 12 Days Qty: 36 RF: 0 omeprazole 40 mg capsule,delayed release(DR/EC) 40 mg PO BID 60 Days Qty: 120 RF: 0 Continued multivitamin Capsule 1 cap PO BEDTIME Qty: 0 RF: 0 escitalopram oxalate [Lexapro] 10 mg tablet 10 mg PO BEDTIME Qty: 90 RF: 3 atorvastatin [Lipitor] 20 mg tablet 20 mg PO BEDTIME Qty: 90 RF: 3 Discontinued metoprolol succinate 50 mg tablet extended release 24 hr 50 mg PO QDAY Qty: 90 RF: 3 aspirin 81 mg tablet,delayed release (DR/EC) 81 mg PO DAILY RF: 0 hydrochlorothiazide 25 mg tablet 25 mg PO BEDTIME Qty: 90 RF: 3 naproxen sodium [Aleve] 220 mg capsule 440 mg PO BEDTIME PRN (Reason: Pain (Scale Score 1-3)) RF: 0 Follow up/Referrals: Jayson Devine MD [Primary Care Provider] - Suraj Pedraza MD [Physician] - 1 Month (f/u EGD with duodenal ulcer) Diet/Activity/Treatments Diet: Diet as Tolerated Diet comment: Low residue diet today, restart regular diet tomorrow Activity: As tolerated Visit Report/Discharge Packet Instructions: DI for Heart Failure, DI for Gastroesophageal Reflux Disease (GERD), DI for Gastritis, DI for Gastric Ulcer, DI for Prescription Opioid Use Visit Report Forms: Patient Portal/API, Stroke Signs & Symptoms Discharge Data Primary Care Provider: Jayson Devine Discharges patient from system. Discharge Date/Time: 05/14/20 15:00 Quality VTE Deep Vein Thrombosis/Pulmonary Embolism Present on Admission: No
[2020-05-14 13:49] VITALS: BP 117/58; PULSE 90; RESP 16; TEMP 36.7; O2SAT 98
== END 2020-05-14 15:00 | disposition home or self-care (01) | DRG 378 ==
LOC: ED 09:02 → AC 09:29
PROVIDERS: Nurse Practitioner Adult Health; Specialist; Admitting Provider Internal Medicine; Emergency Provider Emergency Medicine; PCP Internal Medicine; Referring Provider Emergency Medicine; Visit Provider Internal Medicine
PROC: 0DJ08ZZ Inspection of Upper Intestinal Tract, Via Natural or Artificial Opening Endoscopic (ICD-10-PCS; CPT 43235; principal; 2020-05-12 14:30)
DX: K26.4 Chronic or unspecified duodenal ulcer with hemorrhage (principal); D62 Acute posthemorrhagic anemia; K25.4 Chronic or unspecified gastric ulcer with hemorrhage; K29.81 Duodenitis with bleeding; K22.2 Esophageal obstruction; I10 Essential (primary) hypertension; E78.5 Hyperlipidemia, unspecified; G47.33 Obstructive sleep apnea (adult) (pediatric); F32.9 Major depressive disorder, single episode, unspecified; F17.210 Nicotine dependence, cigarettes, uncomplicated; R55 Syncope and collapse; I95.9 Hypotension, unspecified; Z11.59 Encounter for screening for other viral diseases
CPT/HCPCS: 36415; 36430; 70450; 80048; 80053; 81003; 81015; 83605; 83735; 84484; 85014; 85018; 85025; 85610; 85730; 86850; 86900; 86901; 87635; 93005; 99285; P9016; C9113; J0171; J0330; J0780; J2405; J2704; J3480

== ENCOUNTER → 2020-05-22 15:25 | Outpatient (CLI) | payer MEDICARE, BC, OTHER, SELFPAY ==
[2020-05-12 11:27] VITALS: BMI 24.2
[2020-05-22 15:49] LABS: Hematocrit 31.8 % (36-46); Hemoglobin 10.3 g/dL (12.0-16.0)
== END ==
PROVIDERS: PCP Internal Medicine; Referring Provider Internal Medicine; Visit Provider Internal Medicine
DX: K92.2 Gastrointestinal hemorrhage, unspecified (principal)
CPT/HCPCS: 36415; 85014; 85018

== ENCOUNTER → 2020-06-18 10:59 | Outpatient (CLI) | payer MEDICARE, BC, OTHER, SELFPAY ==
[2020-05-12 11:27] VITALS: BMI 24.2
[2020-06-18 11:27] LABS: Hemoglobin 11.9 g/dL (12.0-16.0); Mean Corpuscular HGB Conc 34.1 % (30-36); Mean Corpuscular Hemoglobin 31.3 PG (26-34); Mean Corpuscular Volume 91.6 fL (80-100); Platelet Count 405 X10^3/uL (150-400); Red Blood Cell Count 3.82 X10^6/uL (4.0-5.2); Red Cell Distribution Width 14.7 % (11.6-14.8); White Blood Cell Count 6.7 X10^3/uL (4.5-11.0)
== END ==
PROVIDERS: PCP Internal Medicine; Referring Provider Specialist; Visit Provider Specialist
DX: D62 Acute posthemorrhagic anemia (principal); K25.4 Chronic or unspecified gastric ulcer with hemorrhage
CPT/HCPCS: 36415; 85027; 99212

== ENCOUNTER → 2020-08-31 09:02 | Outpatient (CLI) | payer MEDICARE, BC, OTHER, SELFPAY ==
[2020-05-12 11:27] VITALS: BMI 24.2
[2020-09-01 01:29] LABS: COVID19 Sendout Not Detected (Not Detect)
== END ==
PROVIDERS: PCP Internal Medicine; Visit Provider Physician Assistant
DX: Z01.812 Encounter for preprocedural laboratory examination (principal)
CPT/HCPCS: 87635

== ENCOUNTER 2020-09-03 06:32 | Day surgery (SDC) | payer MEDICARE, BC, OTHER, SELFPAY ==
[2020-05-12 11:27] VITALS: BMI 24.2
[2020-09-03] VITALS (9 sets, daily range): BP systolic 114–145; BP diastolic 59–82; PULSE 69–77; RESP 11–17; TEMP 36.2–36.8; O2SAT 95–99; BMI 23.2
[2020-09-03] MEDS: LACTATED RINGERS 1,000 ML 42 ML IV (07:27)
--- NOTE | 2020-09-03 08:02 | PM.HP.1 ---
History of Present Illness History of Present Illness Date Patient Seen: 09/03/20 Time Patient Seen: 07:51 Chief complaint: SDC Narrative: The patient is a woman here for an EGD to confirm healing of a gastric ulcer. She is also due for colonoscopy. Last exam was 2 years ago per her history. Recommendation was made at that time for a repeat exam. Patient History Medical History Depression (Acute) Diverticulosis of large intestine (Inactive 06/09/11) Hyperlipidemia (Chronic 06/09/11) Hypertension (Chronic 06/09/11) Migraine without status migrainosus, not intractable (Inactive 01/13/17) Obstructive sleep apnea syndrome (Chronic 06/09/11) Pneumonia (Acute ~09/2015) Rib fractures (Acute ~1977) Serrated adenoma of colon (Inactive 09/21/17) Surgical History H/O: hysterectomy (Acute) History of colonoscopy with polypectomy (Acute ~02/2017) Hx of appendectomy (Acute) Hx of arthroscopy of left knee (Acute ~2007) Hx of bilateral cataract extraction (Acute ~2011) Hx of hernia repair (Acute ~1993) Hx of repair of right rotator cuff (Acute ~2011) Hx of tonsillectomy (Acute ~1948) Status post correction of deviated nasal septum (Acute ~1997) Status post left knee replacement (Acute ~06/2019) Family & Social History Social History: household members none Tobacco & Substance use: Tobacco type cigarettes Smoking Status Current every day smoker alcohol intake current alcohol intake frequency holiday/special occasion Substance Use Type does not use Meds Home Medications and Allergies Home Medications Medication Instructions Recorded Confirmed Type multivitamin 1 cap PO BEDTIME #0 10/05/11 09/03/20 History atorvastatin 20 mg tablet 20 mg PO BEDTIME #90 tab 09/10/19 09/03/20 Rx escitalopram oxalate 10 mg tablet 10 mg PO BEDTIME #90 tab 09/10/19 09/03/20 Rx omeprazole 40 mg capsule,delayed 40 mg PO BID #60 cap 06/18/20 09/03/20 Rx release aspirin 81 mg PO DAILY 09/03/20 09/03/20 History Allergies Allergy/AdvReac Type Severity Reaction Status Date / Time Penicillins [PENICILLINS] Allergy Intermediate Hives Verified 09/03/20 06:56 adhesive [ADHESIVE] Allergy Mild RASH Verified 09/03/20 06:56 CHIVES Allergy Severe ANAPHYLAXIS Uncoded 09/03/20 06:56 Review of Systems Review of Systems ROS: Yes All systems reviewed with the patient and are negative except as otherwise documented Exam Vital Signs (past 8 hours): - 09/03/20 07:15 Temperature 98.3 F Pulse Rate 71 Respiratory Rate 16 Blood Pressure 145/75 H Pulse Oximetry 99 Oxygen Delivery Method Room Air Narrative Exam Narrative: Pleasant cooperative patient no apparent distress. Lungs are clear to auscultation. No rales or rhonchi. Heart regular rate and rhythm no murmur gallop. Abdomen is soft nontender without mass. No obvious hernias. Patient is alert and oriented x3. Assessment & Plan Assessment & Plan narrative: The patient for a screening colonoscopy and of follow-up EGD. I have discussed the procedure with them. Risks of bleeding, perforation which would necessitate major operation, failure to find remove all lesions, the potential tattoo were all discussed. All questions were answered. They wished to proceed.
--- NOTE | 2020-09-03 08:04 | PM.PREOP ---
Pre-operative Note COVID-19 COVID-19 status: Negative Result date/Date tested (Pos, Neg/Pending): 08/31/20 Interval Note History & Physical reviewed/Exam performed by Physician: Yes Changes to H&P: No ASA Class (for procedural sedation): II
[2020-09-03] MEDS: LIDOCAINE 4% SOLN 50 ML 20 ML TOP (08:07)
[2020-09-03] MEDS: fentaNYL 250 MCG/5 ML INJ IV (08:33)
[2020-09-03] MEDS: MIDAZOLAM 5 MG/5 ML VIAL IV (08:36)
--- NOTE | 2020-09-03 09:09 | P.OP.ENDO_ITS ---
Procedure & Clinicians Study performed: EGD and colonoscopy Same procedure as scheduled: Yes Indications: Recommendation for colonoscopy by her prior examiner. Determine of gastric ulcer is healed. Surgeon: Suraj Pedraza Procedure Notes SCOAP/Timeout: Performed Procedure in detail: The patient had topical anesthetic applied to oropharynx. She was placed in left lateral decubitus position and underwent IV sedation directed by the surgeon consisting of fentanyl and Versed. A bite block was inserted and the scope was advanced through it into the esophagus. The esophagus was unremarkable. GE junctions was well demarcated. The stomach insufflated well. There were no lesions seen in the body, antrum or at the incisura. The pyloric channel was patent. The duodenum was unremarkable to the 4th part. The scope was brought back into the stomach and retroflexed. The proximal stomach was remarkable for small hiatal hernia seen only from below.. The scope was straightened and brought out through the esophagus again. No lesions were seen. The scope was removed and the patient tolerated the procedure well. The patient is reposition. The patient was given additional sedation directed by the surgeon. Digital exam was unremarkable. The scope was inserted and advanced through the rectum into the sigmoid. I encountered a very sharp turn at and extensive diverticulosis which I could not negotiate. I removed the scope and inserted a pediatric scope. I inserted through the rectum and sigmoid into the Descending, transverse, and ascending colon. Except for diverticulosis no other lesions were seen. The cecum is reached by applying pressure in inserting a stiffening device.. The cecum was reached identified by the ileo cecal valve and the appendiceal opening. The scope was gradually brought out. No Polyps were found. The scope ultimately was retroflexed in the rectum. The appearance was normal except for scarring and old hemorrhoidal disease. There was no active inflammation.. The scope was removed and the patient tolerated the procedure well. The prep was good. Scope withdrawal time: 7 minutes Sedation minutes: 36 Findings: diverticulosis (Sigmoid) and gastric ulcer (Healed) Specimen(s): none sent Complications: none Post-procedure Recommendations: Colonscopy in 5 years Follow up: as needed Disposition: PACU
[2020-09-03] MEDS: ONDANSETRON 4 MG ODT SL (09:55)
--- NOTE | 2020-09-03 10:09 | SUR.PHASEII ---
pt become nauseated after getting herself dressed to go home. pt had approx 200 cc of clear yellow emesis. Oral zofran given to pt. Nausea resolved and no further emesis. Pt discharged to home in stable condition, vss.
== END 2020-09-03 10:10 | disposition home or self-care (01) ==
PROVIDERS: PCP Internal Medicine; Referring Provider Specialist; Visit Provider Specialist
PROC: 0DJ08ZZ Inspection of Upper Intestinal Tract, Via Natural or Artificial Opening Endoscopic (ICD-10-PCS; CPT 43235; principal; 2020-09-03 07:45)
PROC: 0DJD8ZZ Inspection of Lower Intestinal Tract, Via Natural or Artificial Opening Endoscopic (ICD-10-PCS; CPT 45378; 2020-09-03 07:45)
DX: Z12.11 Encounter for screening for malignant neoplasm of colon (principal); Z87.11 Personal history of peptic ulcer disease; I10 Essential (primary) hypertension; G47.33 Obstructive sleep apnea (adult) (pediatric); E78.5 Hyperlipidemia, unspecified; F32.9 Major depressive disorder, single episode, unspecified; Z86.010 Personal history of colon polyps; K57.30 Diverticulosis of large intestine without perforation or abscess without bleeding; K44.9 Diaphragmatic hernia without obstruction or gangrene
CPT/HCPCS: 43235; G0105; 99152; 99153; J2250; J3010

== ENCOUNTER → 2020-09-08 09:13 | Outpatient (CLI) | payer MEDICARE, BC, OTHER, SELFPAY ==
[2020-05-12 11:27] VITALS: BMI 24.2
--- NOTE | 2020-09-08 09:16 | DI.MG.S_ITS ---
UNILATERAL LEFT DIGITAL DIAGNOSTIC MAMMOGRAM 3D/2D: 09/08/2020 CLINICAL: Short follow up. Comparison is made to exams dated: 03/12/2020 mammogram, 09/27/2019 mammogram, 03/27/2019 mammogram, 03/17/2020 ultrasound, 09/27/2019 ultrasound, and 03/13/2019 mammogram - [facility]. The tissue of left breast is heterogeneously dense. This may lower the sensitivity of mammography. There are stable grouped punctate calcifications in the left breast at 2 o'clock posterior depth. No other significant masses or calcifications are seen in the breast. IMPRESSION: PROBABLY BENIGN A targeted ultrasound is recommended of the left breast for previously seen probably benign complicated cyst, which will be scheduled immediately following this exam. The stable grouped punctate calcifications in the left breast are probably benign. A follow-up mammogram in 6 months is recommended. This exam was interpreted at Station ID: [id number]. NOTE: For mammograms, a report in lay terms will be sent to the patient. Approximately 15% of breast malignancies will not be visualized mammographically. In the management of a palpable breast mass, a negative mammogram must not discourage biopsy of a clinically suspicious lesion. Electronically Signed By: Oracio amanda/salvador:09/08/2020 11:40:13 ACR BI-RADS Category 3: Probably benign 3343F
--- NOTE | 2020-09-08 09:16 | DI.US.S_ITS ---
LIMITED ULTRASOUND OF LEFT BREAST: 09/08/2020 CLINICAL: Patient returns today to evaluate a focal asymmetry in the left breast. Comparison is made to exams dated: 09/08/2020 mammogram, 03/17/2020 ultrasound, 03/12/2020 mammogram, 09/27/2019 ultrasound, 09/27/2019 mammogram, and 03/27/2019 ultrasound - [facility]. Color flow ultrasound of the left breast 2 o'clock region was performed. Raza scale images of the real-time examination were reviewed. There is a 0.5 cm x 0.5 cm x 0.5 cm oval cyst with debris in the left breast at 2 o'clock posterior depth 6 cm from the nipple. This abnormality is not significantly changed. IMPRESSION: PROBABLY BENIGN The 0.5 cm x 0.5 cm x 0.5 cm oval cyst with debris in the left breast likely represents a complicated cyst and is probably benign. A follow-up ultrasound in 6 months is recommended. A follow-up mammogram and an ultrasound in 6 months is recommended to demonstrate stability. This exam was interpreted at Station ID: [id number]. Electronically Signed By: Oracio amanda/salvador:09/08/2020 11:45:28 letter sent: Followup Recommended Ultrasound BI-RADS: 3 Probably benign
== END ==
PROVIDERS: PCP Internal Medicine; Referring Provider Internal Medicine; Visit Provider Internal Medicine
DX: R92.8 Other abnormal and inconclusive findings on diagnostic imaging of breast (principal); R92.1 Mammographic calcification found on diagnostic imaging of breast; N60.02 Solitary cyst of left breast
CPT/HCPCS: 76642; 77065; G0279

== ENCOUNTER → 2021-02-22 12:27 | Outpatient (CLI) | payer MEDICARE, BC, OTHER, SELFPAY ==
[2020-05-12 11:27] VITALS: BMI 24.2
--- NOTE | 2021-02-22 | DI.MG.S_ITS ---
BILATERAL DIGITAL DIAGNOSTIC MAMMOGRAM 3D/2D SHORT-TERM FOLLOW-UP: 02/22/2021 CLINICAL: Short follow up, due bilateral. Comparison is made to exams dated: 09/08/2020 mammogram, 03/12/2020 mammogram, 09/27/2019 mammogram, 03/27/2019 mammogram, and 03/13/2019 mammogram - [facility]. The tissue of both breasts is heterogeneously dense. This may lower the sensitivity of mammography. There are stable grouped coarse punctate calcifications in the left breast at 1 o'clock posterior depth. No other significant masses, calcifications, or other findings are seen in either breast. IMPRESSION: INCOMPLETE: NEEDS ADDITIONAL IMAGING EVALUATION A targeted ultrasound is recommended of the left breast for previously seen probably benign complicated cyst, which will be scheduled immediately following this exam. The stable grouped coarse punctate calcifications in the left breast 1 o'clock posterior depth appear stable and are probably benign. This exam was interpreted at Station ID: [id number]. NOTE: For mammograms, a report in lay terms will be sent to the patient. Approximately 15% of breast malignancies will not be visualized mammographically. In the management of a palpable breast mass, a negative mammogram must not discourage biopsy of a clinically suspicious lesion. Electronically Signed By: Rafat Hernandez M.D. aty/:02/22/2021 13:29:15 ACR BI-RADS Category 0: Incomplete 3340F
--- NOTE | 2021-02-22 12:29 | DI.US.S_ITS ---
ULTRASOUND OF LEFT BREAST: 02/22/2021 CLINICAL: Patient returns today to evaluate a focal asymmetry in the left breast. Comparison is made to exams dated: 02/22/2021 mammogram, 09/08/2020 ultrasound, 09/08/2020 mammogram, 03/17/2020 ultrasound, 03/12/2020 mammogram, and 09/27/2019 [facility]. Color flow and real-time ultrasound of the left breast were performed. Raza scale images of the real-time examination were reviewed. There is a stable 0.5 cm x 0.3 cm x 0.4 cm oval cyst with debris in the left breast at 2 o'clock posterior depth 6 cm from the nipple. This oval cyst with debris is hypoechoic. This abnormality is not significantly changed for two years. Color flow imaging demonstrates that there is no vascularity present. IMPRESSION: BENIGN There is no sonographic evidence of malignancy. The 0.5 cm x 0.3 cm x 0.4 cm oval cyst with debris in the left breast is consistent with a benign complicated cyst as it has demonstrated two years of stability. Previously described grouped calcifications in the upper outer quadrant posterior depth have also demonstrated two years of stability and are consistent with a benign process. Return to annual mammogram screening schedule is recommended. Findings and recommendations were conveyed to the patient during today's evaluation. This exam was interpreted at Station ID: [id number]. Electronically Signed By: Rafat Hernandez M.D. aty/:02/22/2021 13:49:20 letter sent: Normal Exam Ultrasound BI-RADS: 2 Benign
== END ==
PROVIDERS: PCP Internal Medicine; Referring Provider Internal Medicine; Visit Provider Internal Medicine
DX: N60.02 Solitary cyst of left breast (principal)
CPT/HCPCS: 76642; 77066; G0279

== ENCOUNTER → 2021-08-17 12:02 | Outpatient (CLI) | payer MEDICARE, BC, OTHER, SELFPAY ==
[2020-05-12 11:27] VITALS: BMI 24.2
[2021-08-17 13:13] LABS: Alanine Aminotransferase 26 IU/L (<35); Albumin 4.7 g/dL (3.5-5.0); Albumin Globulin Ratio 1.4 (1.0-2.8); Alkaline Phosphatase 92 U/L (38-126); Aspartate Aminotransferase 32 IU/L (14-36); BUN Creatinine Ratio 21.5 (6-22); Bilirubin Total 0.7 mg/dL (0.2-1.3); Blood Urea Nitrogen 17 mg/dL (7-17); C-Reactive Protein Quant 0.7 mg/dL (<1.0); Calcium 9.4 mg/dL (8.4-10.2); Carbon Dioxide 32 mmol/L (22-32); Chloride 102 mmol/L (98-107); Estimated Glomerular Filt Rate > 60.0 mL/min (>60); Globulin 3.3 g/dL (1.7-4.1); Glucose 98 mg/dL (80-110); HEMOLYSIS < 15 (0-50); Potassium 4.2 mmol/L (3.4-5.1); Sodium 140 mmol/L (137-145)
[2021-08-17 13:16] LABS: Add Manual Diff / Slide Review NO; Basophils Absolute Auto 100 /uL (0-100); Basophils Percent Auto 0.6 % (0-2); Eosinophils Absolute Auto 100 /uL (0-450); Eosinophils Percent Auto 1.2 % (2-4); Hematocrit 40.8 % (36-46); Hemoglobin 13.8 g/dL (12.0-16.0); Lymphocytes Absolute Auto 3000 /uL (1100-4500); Lymphocytes Percent Auto 33.5 % (25-40); Mean Corpuscular HGB Conc 33.8 % (30-36); Mean Corpuscular Hemoglobin 30.8 PG (26-34); Mean Corpuscular Volume 91.1 fL (80-100); Monocytes Absolute Auto 700 /uL (0-900); Monocytes Percent Auto 7.7 % (3-14); Neutrophils Absolute Auto 5200 /uL (1500-7000); Platelet Count 385 X10^3/uL (150-400); Red Blood Cell Count 4.48 X10^6/uL (4.0-5.2); Red Cell Distribution Width 13.9 % (11.6-14.8); White Blood Cell Count 9.1 X10^3/uL (4.5-11.0)
[2021-08-17 13:34] LABS: Erythrocyte Sedimentation Rate 12 MM/HR (0-20)
== END ==
PROVIDERS: PCP Internal Medicine; Referring Provider Internal Medicine; Visit Provider Internal Medicine
DX: E78.2 Mixed hyperlipidemia (principal); I10 Essential (primary) hypertension
CPT/HCPCS: 36415; 80053; 85025; 85651; 86140

== ENCOUNTER → 2021-08-19 09:52 | Outpatient (CLI) | payer MEDICARE, BC, OTHER, SELFPAY ==
[2020-05-12 11:27] VITALS: BMI 24.2
--- NOTE | 2021-08-19 09:57 | DI.CT.S_ITS ---
PROCEDURE: CT HEAD/BRAIN WO CON INDICATIONS: headache TECHNIQUE: Noncontrast 4.5 mm thick angled axial sections acquired from the foramen magnum to the vertex, with coronal and sagittal reformats. For radiation dose reduction, the following was used: automated exposure control, adjustment of mA and/or kV according to patient size. COMPARISON: [facility], CT, HEAD WITHOUT CONTRAST, 01/10/2011, 7:34. [facility], CT, HEAD WITHOUT CONTRAST, 02/27/2012, 17:19. [facility], CT, CT HEAD/BRAIN WO CON, 05/12/2020, 8:00. FINDINGS: Image quality: Excellent. CSF spaces: Basal cisterns are patent. No extra-axial fluid collections. The ventricles are prominent, yet stable in size and shape. Brain: No intracranial bleeds or masses. There is cerebral volume loss for age, with resultant ventricular and sulcal prominence. There are periventricular and deep white matter chronic small vessel ischemic changes. There is intracranial internal carotid artery atherosclerosis. Skull and face: Calvarium and visualized facial bones appear intact, without suspicious lesions. Sinuses: Visualized sinuses and mastoids are clear. IMPRESSION: Unremarkable intracranial study, without an imaging explanation found for the patient's presenting history of headache. Stable volume loss, stable prominence of the ventricles. Dictated by: Paulo Palmer M.D. on 08/19/2021 at 9:26 Approved by: Paulo Palmer M.D. on 08/19/2021 at 9:28
== END ==
PROVIDERS: PCP Internal Medicine; Referring Provider Internal Medicine; Visit Provider Internal Medicine
DX: R51.9 Headache, unspecified (principal); I10 Essential (primary) hypertension
CPT/HCPCS: 70450

== ENCOUNTER → 2022-02-28 10:33 | Outpatient (CLI) | payer MEDICARE, BC, OTHER, SELFPAY ==
[2020-05-12 11:27] VITALS: BMI 24.2
--- NOTE | 2022-02-28 | DI.MG.S_ITS ---
BILATERAL DIGITAL SCREENING MAMMOGRAM 3D/2D WITH CAD: 02/28/2022 CLINICAL: Routine screening. Comparison is made to exams dated: 02/22/2021 mammogram, 03/12/2020 mammogram, 03/13/2019 mammogram, and 02/07/2018 mammogram - [facility]. The tissue of both breasts is heterogeneously dense. This may lower the sensitivity of mammography. Current study was also evaluated with a Computer Aided Detection (CAD) system. No significant masses, calcifications, or other findings are seen in either breast. There has been no significant interval change. IMPRESSION: NEGATIVE There is no mammographic evidence of malignancy. A 1 year screening mammogram is recommended. This exam was interpreted at Station ID: [id number]. NOTE: For mammograms, a report in lay terms will be sent to the patient. Approximately 15% of breast malignancies will not be visualized mammographically. In the management of a palpable breast mass, a negative mammogram must not discourage biopsy of a clinically suspicious lesion. Electronically Signed By: Michaelle sutton/salvador:02/28/2022 11:08:00 letter sent: Normal Exam ACR BI-RADS Category 1: Negative 3341F
== END ==
PROVIDERS: PCP Internal Medicine; Referring Provider Internal Medicine; Visit Provider Internal Medicine
DX: Z12.31 Encounter for screening mammogram for malignant neoplasm of breast (principal)
CPT/HCPCS: 77063; 77067

== ENCOUNTER → 2023-01-21 08:42 | Outpatient (CLI) | payer MEDICARE, BC, OTHER, SELFPAY ==
[2020-05-12 11:27] VITALS: BMI 24.2
[2023-01-21 09:30] LABS: Alanine Aminotransferase 25 IU/L (<35); Albumin 4.2 g/dL (3.5-5.0); Albumin Globulin Ratio 1.4 (1.0-2.8); Alkaline Phosphatase 81 U/L (38-126); Aspartate Aminotransferase 28 IU/L (14-36); Bilirubin Total 0.8 mg/dL (0.2-1.3); Blood Urea Nitrogen 16 mg/dL (7-17); Calcium 9.1 mg/dL (8.4-10.2); Carbon Dioxide 29 mmol/L (22-32); Chloride 100 mmol/L (98-107); Cholesterol 198 mg/dL (140-199); Estimated Glomerular Filt Rate > 60 mL/min (>60); Globulin 2.9 g/dL (1.7-4.1); Glucose 98 mg/dL (80-110); HDL Cholesterol 43 mg/dL (40-60); HEMOLYSIS < 15 (0-50); LDL Cholesterol Calculated 93 mg/dL (<100); Potassium 3.3 mmol/L (3.4-5.1); Sodium 138 mmol/L (137-145); Total Protein 7.1 g/dL (6.3-8.2); Triglycerides 308 mg/dL (35-150)
== END ==
PROVIDERS: PCP Internal Medicine; Referring Provider Internal Medicine; Visit Provider Internal Medicine
DX: E78.5 Hyperlipidemia, unspecified (principal); I10 Essential (primary) hypertension
CPT/HCPCS: 36415; 80053; 80061

== ENCOUNTER → 2023-03-04 11:32 | Outpatient (CLI) | payer MEDICARE, BC, OTHER, SELFPAY ==
[2020-05-12 11:27] VITALS: BMI 24.2
--- NOTE | 2023-03-04 11:34 | DI.MG.S_ITS ---
BILATERAL DIGITAL SCREENING MAMMOGRAM 3D/2D WITH CAD: 03/04/2023 CLINICAL: Routine screening. Comparison is made to exams dated: 02/28/2022 mammogram, 02/22/2021 mammogram, and 03/12/2020 mammogram - [facility]. Both breasts are heterogeneously dense, which may obscure small masses (category c / 51-75% glandular tissue). Current study was also evaluated with a Computer Aided Detection (CAD) system. There are benign calcifications in both breasts. No significant masses, calcifications, or other findings are seen in either breast. There has been no significant interval change. IMPRESSION: BENIGN There is no mammographic evidence of malignancy. A 1 year screening mammogram is recommended. Based on the Tyrer Cuzick model (a risk assessment model) the patient's lifetime risk is 1.7% and her 10 year risk is 0.0%. According to the ACR, ACS, and NCCN guidelines, an annual breast MRI exam along with mammogram is recommended if the patient's lifetime risk is 20% or greater. This exam was interpreted at Station ID: [id number]. NOTE: For mammograms, a report in lay terms will be sent to the patient. Approximately 15% of breast malignancies will not be visualized mammographically. In the management of a palpable breast mass, a negative mammogram must not discourage biopsy of a clinically suspicious lesion. Electronically Signed By: Rafat adame/salvador:03/06/2023 10:25:17 letter sent: Normal Exam ACR BI-RADS Category 2: Benign Finding(s) 3342F
== END ==
PROVIDERS: PCP Internal Medicine; Referring Provider Internal Medicine; Visit Provider Internal Medicine
DX: Z12.31 Encounter for screening mammogram for malignant neoplasm of breast (principal)
CPT/HCPCS: 77063; 77067

== ENCOUNTER → 2023-07-27 09:38 | Outpatient (CLI) | payer MEDICARE, BC, OTHER, SELFPAY ==
[2020-05-12 11:27] VITALS: BMI 24.2
[2023-07-27 11:02] LABS: Alanine Aminotransferase 23 IU/L (<35); Albumin 4.4 g/dL (3.5-5.0); Albumin Globulin Ratio 1.4 (1.0-2.8); Alkaline Phosphatase 59 U/L (38-126); Aspartate Aminotransferase 31 IU/L (14-36); BUN Creatinine Ratio 21.3 (6-22); Bilirubin Total 0.5 mg/dL (0.2-1.3); Blood Urea Nitrogen 17 mg/dL (7-17); Calcium 8.8 mg/dL (8.4-10.2); Carbon Dioxide 30 mmol/L (22-32); Chloride 100 mmol/L (98-107); Estimated Glomerular Filt Rate > 60 mL/min (>60); Globulin 3.2 g/dL (1.7-4.1); Glucose 92 mg/dL (80-110); HEMOLYSIS 34 (0-50); Potassium 3.6 mmol/L (3.4-5.1); Sodium 138 mmol/L (137-145); Total Protein 7.6 g/dL (6.3-8.2)
== END ==
PROVIDERS: PCP Internal Medicine; Referring Provider Internal Medicine; Visit Provider Internal Medicine
DX: I10 Essential (primary) hypertension (principal); E78.5 Hyperlipidemia, unspecified; E87.6 Hypokalemia
CPT/HCPCS: 36415; 80053; 83735

== ENCOUNTER 2023-11-14 13:13 | Emergency (ER) | payer MEDICARE, BC, OTHER, SELFPAY ==
[2020-05-12 11:27] VITALS: BMI 24.2
[2023-11-14 13:18] VITALS: BP 131/67; PULSE 84; RESP 18; TEMP 36.6; O2SAT 97; BMI 25.0
--- NOTE | 2023-11-14 14:00 | ED_ITS ---
HPI - URI/Sore Throat <Marcelo Groves PA-C - Last Filed: 11/14/23 15:03> General Chief Complaint: Upper Respiratory Symptoms Stated Complaint: purulent/ Pneumonia T-10 chest xray Time Seen by Provider: 11/14/23 13:32 Source: patient Mode of arrival: Ambulatory History of Present Illness HPI Narrative: This is a 78-year-old female presents to the emergency department due to 3 weeks of a productive cough as well as sinus drainage and discomfort. Denies any nausea, vomiting, chest pain, shortness of breath. Does report some tactile fevers. Related Data Home Medications Medication Instructions Recorded Confirmed multivitamin 1 cap PO BEDTIME ##0 10/05/11 01/20/23 aspirin 81 mg tablet,delayed 81 mg PO DAILY 09/03/20 01/20/23 release Previous Rx's Medication Instructions Recorded atorvastatin 20 mg tablet (Lipitor) 20 mg PO BEDTIME #90 tabs 01/20/23 escitalopram oxalate 10 mg tablet 10 mg PO DAILY #90 tabs 01/20/23 hydrochlorothiazide 25 mg tablet 25 mg PO BEDTIME #90 tabs 01/20/23 potassium chloride 10 mEq 10 meq PO DAILY #90 tabs 01/23/23 tablet,extended release Allergies Allergy/AdvReac Type Severity Reaction Status Date / Time Penicillins [PENICILLINS] Allergy Intermediate Hives Verified 07/27/23 09:23 adhesive [ADHESIVE] Allergy Mild RASH Verified 07/27/23 09:23 CHIVES Allergy Severe ANAPHYLAXIS Uncoded 07/27/23 09:23 Review of Systems <Marcelo Groves PA-C - Last Filed: 11/14/23 15:03> Review of Systems Narrative: GENERAL: Denies chills, fatigue, malaise, fever, sweats. HEENT: Denies sinus pain, ear pain, sore throat, difficulty swallowing, dizziness. RESPIRATORY: Reports productive cough, denies wheezing, hemoptysis, sputum. CARDIOVASCULAR: Denies chest pain, palpitations, orthopnea, edema, GASTROINTESTINAL: Denies nausea, vomiting, abdominal pain, diarrhea, constipation, melena. : Denies dysuria, frequency, incontinence, hematuria, urinary retention. MUSCULOSKELETAL: denies weakness, joint pain, or bony pain SKIN: Denies rash, skin lesions, or other NEUROLOGIC: Denies weakness, headache, numbness, change in speech, confusion, seizures, incoordination. PSYCHIATRIC: No concerning psychosocial issues. 12 point review of systems is negative except for those stated above Patient History <Marcelo Groves PA-C - Last Filed: 11/14/23 15:03> Medical History (Updated 11/14/23 @ 15:03 by Marcelo Groves PA-C) Depression Rib fractures (~1977) Pneumonia (~09/2015) Serrated adenoma of colon (09/21/17) Migraine without status migrainosus, not intractable (01/13/17) Obstructive sleep apnea syndrome (06/09/11) Diverticulosis of large intestine (06/09/11) Hyperlipidemia (06/09/11) Hypertension (06/09/11) Surgical History Status post left knee replacement (~06/2019) History of colonoscopy with polypectomy (~02/2017) Hx of repair of right rotator cuff (~2011) Hx of tonsillectomy (~1948) Hx of appendectomy H/O: hysterectomy Hx of hernia repair (~1993) Status post correction of deviated nasal septum (~1997) Hx of bilateral cataract extraction (~2011) Hx of arthroscopy of left knee (~2007) Social History household members: none Smoking Status: Current every day smoker alcohol intake: current Smoking Status: Current every day smoker tobacco type: cigarettes alcohol intake frequency: holidays/special occasions only Substance Use Type: does not use Exam <Marcelo Groves PA-C - Last Filed: 11/14/23 15:03> Narrative Exam Narrative: GENERAL: Well-developed patient, in mild distress. HEAD: Atraumatic. Normocephalic. EYES: Pupils equal round and reactive. Extraocular motions intact. No scleral icterus. No injection or drainage. ENT: Nose without bleeding, purulent drainage. Throat without erythema, tonsillar hypertrophy or exudate. Airway patent. NECK: Trachea midline. Non tender CARDIOVASCULAR: Regular rate and rhythm without murmurs, gallops, or rubs. RESPIRATORY: Clear to auscultation. Breath sounds equal bilaterally. No wheezes, rales, or rhonchi. GASTROINTESTINAL: Abdomen soft, non-tender, nondistended. EXTREMITIES: No edema or joint tenderness. BACK: Nontender without deformity or crepitance. No flank tenderness. NEURO: AOx3. SKIN: No rash or erythema of visible areas Initial Vital Signs Initial Vital Signs: Vital Signs Temperature 97.9 F 11/14/23 13:18 Pulse Rate 84 11/14/23 13:18 Respiratory Rate 18 11/14/23 13:18 Blood Pressure 131/67 11/14/23 13:18 Pulse Oximetry 97 11/14/23 13:18 Oxygen Delivery Method Room Air 11/14/23 13:18 <Shayna Lilly DO - Last Filed: 11/15/23 07:50> Initial Vital Signs Initial Vital Signs: Vital Signs Temperature 97.9 F 11/14/23 13:18 Pulse Rate 84 11/14/23 13:18 Respiratory Rate 18 11/14/23 13:18 Blood Pressure 131/67 11/14/23 13:18 Pulse Oximetry 97 11/14/23 13:18 Oxygen Delivery Method Room Air 11/14/23 13:18 Course <Marcelo Groves PA-C - Last Filed: 11/14/23 15:03> Orders Ordered: ED Orders 11/14/23 14:07 XR chest 2V Stat Vital Signs Vital signs: Vital Signs - 8 hr 11/14/23 13:18 Temperature 97.9 F Pulse Rate 84 Respiratory Rate 18 Blood Pressure 131/67 Pulse Oximetry 97 Oxygen Delivery Method Room Air <Shayna Lilly DO - Last Filed: 11/15/23 07:50> Orders Ordered: ED Orders 11/14/23 14:07 XR chest 2V Stat Vital Signs Vital signs: Vital Signs - 8 hr 11/14/23 13:18 Temperature 97.9 F Pulse Rate 84 Respiratory Rate 18 Blood Pressure 131/67 Pulse Oximetry 97 Oxygen Delivery Method Room Air MDM - URI/Sore Throat <SARAH Russell Last Filed: 11/14/23 15:03> Imaging Data Chest x-ray: Radiologist's Impression: [address] [address] XRay Report Signed Patient: Ana Barger MR#: [id number] : 1945 Acct:[id number] Age/Sex: 78 / F Date of Service: 11/14/23 Loc: ED Accession Number: [id number] Procedure: XR chest 2V Ordering Provider: Marcelo Groves P.A-C PROCEDURE: XR CHEST 2V INDICATIONS: Productive cough TECHNIQUE: 2 views of the chest were acquired. COMPARISON: [facility], , CHEST 2 VIEW, 09/27/2015, 14:31. FINDINGS: Surgical changes and devices: None. Lungs and pleura: Lungs are clear. No pleural effusions or pneumothorax. Mediastinum: Mediastinal contours are normal. Heart size is normal. Bones and chest wall: No suspicious bony abnormalities. Soft tissues appear unremarkable. IMPRESSION: No acute cardiopulmonary abnormality is seen. Dictated by: Siomara Casillas MD, PhD on 11/14/2023 at 14:21 Approved by: Siomara Casillas MD, PhD on 11/14/2023 at 14:22 MDM Narrative Medical decision making narrative: MDM * differential diagnosis includes but not limited to pneumonia, bacterial sinusitis, viral sinusitis, viral URI * Prior records reviewed: Patient was last seen here 3 years ago due to an acute GI bleed. History of pneumonia in 2014. * My lab interpretation: None obtained * My imgaing interpretation: Chest x-ray unremarkable * Clinical Decision Rules/Scores evaluated: None * Independent discussions with: None ED Course: This is a 78-year-old female presents to the emergency department due to productive cough for the last 3 weeks. Patient declined viral testing. She also declined antibiotics to treat a possible sinus infection. Chest x-ray was unremarkable. Recommended [id number] symptomatic supportive care. Shared Decision Making: Discussed plan with the patient was comfortable with the plan. Social Considerations: None Disposition: Discharged to home Discharge Plan Departure Patient Disposition: Home Clinical Impression: Productive cough Activity Restrictions/Additional Instructions: Thank you for coming to the [facility] Emergency Department today. As we discussed your chest x-ray was negative for pneumonia. I do recommend taking the [id number] cough medication that you have already purchased. The Mucinex should help break up the mucus and help you cough it up. I hope you feel better soon. Please follow up with your primary care provider within a week if your symptoms continue. If you do not have a primary care provider please contact the [facility] Resource line at [phone]. They will ask some questions about your medical history and help you get set up with a provider in the community. Prescriptions: No Action multivitamin Capsule 1 cap PO BEDTIME Qty: 0 Patient Comments: potassium chloride 10 mEq tablet extended release 10 meq PO DAILY Qty: 90 3RF escitalopram oxalate 10 mg tablet 10 mg PO DAILY Qty: 90 3RF atorvastatin [Lipitor] 20 mg tablet 20 mg PO BEDTIME Qty: 90 3RF hydrochlorothiazide 25 mg tablet 25 mg PO BEDTIME Qty: 90 3RF aspirin 81 mg Tablet,Delayed Release (Dr/Ec) 81 mg PO DAILY Referrals: Jayson Devine MD [Primary Care Provider] - Stand Alone Forms: Patient Portal/API ED Sign-out <Shayna Lilly, - Last Filed: 11/15/23 07:50> Cosign ED Attending Jonah Attestation: I was available for consultation.
--- NOTE | 2023-11-14 14:07 | DI.RAD.S_ITS ---
PROCEDURE: XR CHEST 2V INDICATIONS: Productive cough TECHNIQUE: 2 views of the chest were acquired. COMPARISON: [facility], , CHEST 2 VIEW, 09/27/2015, 14:31. FINDINGS: Surgical changes and devices: None. Lungs and pleura: Lungs are clear. No pleural effusions or pneumothorax. Mediastinum: Mediastinal contours are normal. Heart size is normal. Bones and chest wall: No suspicious bony abnormalities. Soft tissues appear unremarkable. IMPRESSION: No acute cardiopulmonary abnormality is seen. Dictated by: Siomara Casillas MD, PhD on 11/14/2023 at 14:21 Approved by: Siomara Casillas MD, PhD on 11/14/2023 at 14:22
[2023-11-14 15:16] VITALS: BP 198/98; PULSE 73; RESP 18; O2SAT 99
== END 2023-11-14 15:10 | disposition home or self-care (01) ==
PROVIDERS: Emergency Provider Physician Assistant Medical; PCP Internal Medicine
DX: R05.9 Cough, unspecified (principal)
CPT/HCPCS: 71046; 99281; 99283

== ENCOUNTER → 2024-04-03 14:33 | Outpatient (CLI) | payer MEDICARE, BC, OTHER, SELFPAY ==
[2020-05-12 11:27] VITALS: BMI 24.2
--- NOTE | 2024-04-03 14:37 | DI.MG.S_ITS ---
BILATERAL DIGITAL SCREENING MAMMOGRAM 3D/2D WITH CAD: 04/03/2024 CLINICAL: Routine screening. Comparison is made to exams dated: 03/04/2023 mammogram, 02/28/2022 mammogram, and 02/22/2021 mammogram - [facility]. Both breasts are heterogeneously dense, which may obscure small masses (category c / 51-75% glandular tissue). Current study was also evaluated with a Computer Aided Detection (CAD) system. No significant masses, calcifications, or other findings are seen in either breast. There has been no significant interval change. IMPRESSION: NEGATIVE There is no mammographic evidence of malignancy. A 1 year screening mammogram is recommended. Based on the Tyrer Cuzick model (a risk assessment model) the patient's lifetime risk is 1.5% and her 10 year risk is 0.0%. According to the ACR, ACS, and NCCN guidelines, an annual breast MRI exam along with mammogram is recommended if the patient's lifetime risk is 20% or greater. This exam was interpreted at Station ID: [id number]. NOTE: For mammograms, a report in lay terms will be sent to the patient. Approximately 15% of breast malignancies will not be visualized mammographically. In the management of a palpable breast mass, a negative mammogram must not discourage biopsy of a clinically suspicious lesion. Electronically Signed By: Freda Jones M.D., Ph.D. mora/salvador:04/03/2024 21:24:52 letter sent: Normal Exam ACR BI-RADS Category 1: Negative [id number]
== END ==
PROVIDERS: PCP Internal Medicine; Referring Provider Internal Medicine; Visit Provider Internal Medicine
DX: Z12.31 Encounter for screening mammogram for malignant neoplasm of breast (principal); R92.333 Mammographic heterogeneous density, bilateral breasts
CPT/HCPCS: 77063; 77067

== ENCOUNTER 2025-02-15 12:08 | Emergency (ER) | payer MEDICARE, BC, OTHER, SELFPAY ==
[2020-05-12 11:27] VITALS: BMI 24.2
[2025-02-15 12:18] VITALS: BP 165/72; PULSE 82; RESP 20; TEMP 37.1; O2SAT 98; BMI 24.3
--- NOTE | 2025-02-15 12:34 | ED_ITS ---
HPI - Back Pain/Injury <Buffy Arguello PA-C - Last Filed: 02/15/25 15:34> General Chief Complaint: Back Pain/Injury Stated Complaint: back pain t-7, worsened today Time Seen by Provider: 02/15/25 12:31 Source: patient and family History of Present Illness HPI Narrative: This is an 79-year-old woman with a history of hypertension, hyperlipidemia MADINA presenting with concern for right low back pain that has been present for about a week since Monday with no specific injury or inciting incident. She states that her pain has worsened in the last day which brought her into the emergency department. She is tried Tylenol a few times at night before bed but otherwise has not taken anything for the pain. She has tried using heat which she said helped some. She describes the pain as a dull aching pain that is present constantly. She points to her right low back/upper buttock below the iliac crest in the middle. She states she has had pain like this in the past but ?only when I lifted something heavy?. She has not done any atypical physical activities recently she does endorse she has been under a great deal of stress this week due to some family stressors related to her son as well as a vehicle being broken down. Patient states she has not had any fevers, weakness in her legs, falls, change in bowel or bladder function, chest pain, upper back pain, numbness or tingling of extremities or other symptoms. Related Data Home Medications Medication Instructions Recorded Confirmed multivitamin 1 cap PO BEDTIME ##0 10/05/11 11/11/24 aspirin 81 mg tablet,delayed 81 mg PO DAILY 09/03/20 11/11/24 release Previous Rx's Medication Instructions Recorded atorvastatin 20 mg tablet 20 mg PO ONCE PM #90 tabs 11/11/24 escitalopram oxalate 10 mg tablet 10 mg PO DAILY #90 tabs 11/11/24 hydrochlorothiazide 25 mg tablet 25 mg PO BEDTIME #90 tabs 11/11/24 potassium chloride 10 mEq 10 meq PO DAILY #90 tabs 11/11/24 tablet,extended release prednisone 20 mg tablet 40 mg (2 x 20 mg) PO DAILY 3 days 02/15/25 #6 tabs Allergies Allergy/AdvReac Type Severity Reaction Status Date / Time Penicillins [PENICILLINS] Allergy Intermediate Hives Verified 12/23/24 14:35 adhesive [ADHESIVE] Allergy Mild RASH Verified 11/11/24 14:35 CHIVES Allergy Severe ANAPHYLAXIS Uncoded 11/11/24 14:35 Review of Systems <Buffy Arguello PA-C - Last Filed: 02/15/25 15:34> Review of Systems Narrative: See HPI Patient History <Buffy Arguello PA-C - Last Filed: 02/15/25 15:34> Medical History Depression Rib fractures (~1977) Pneumonia (~09/2015) Serrated adenoma of colon (09/21/17) Migraine without status migrainosus, not intractable (01/13/17) Obstructive sleep apnea syndrome (06/09/11) Diverticulosis of large intestine (06/09/11) Hyperlipidemia (06/09/11) Hypertension (06/09/11) Surgical History Status post left knee replacement (~06/2019) History of colonoscopy with polypectomy (~02/2017) Hx of repair of right rotator cuff (~2011) Hx of tonsillectomy (~1948) Hx of appendectomy H/O: hysterectomy Hx of hernia repair (~1993) Status post correction of deviated nasal septum (~1997) Hx of bilateral cataract extraction (~2011) Hx of arthroscopy of left knee (~2007) Social History household members: none Smoking Status: Current every day smoker alcohol intake: current Smoking Status: Current every day smoker tobacco type: cigarettes alcohol intake frequency: holidays/special occasions only Alcohol type: wine Exam <Buffy Arguello PA-C - Last Filed: 02/15/25 15:34> Narrative Exam Narrative: GENERAL: [79] year old patient appears stated age. Well-developed patient, in mild distress. HEAD: Atraumatic. Normocephalic. EYES: Pupils equal round and reactive. Extraocular motions intact. No scleral icterus. No injection or drainage. ENT: Nose without bleeding, purulent drainage. Airway patent. NECK: Trachea midline. Non tender CARDIOVASCULAR: Regular rate and rhythm without murmurs, gallops, or rubs. RESPIRATORY: Clear to auscultation. Breath sounds equal bilaterally. No wheezes, rales, or rhonchi. GASTROINTESTINAL: Abdomen soft, non-tender, nondistended, no CVA tenderness. EXTREMITIES: Strength is intact and equal in lower extremities. She has slight increased low back pain with resisted extension at the hip and also endorses right anterior hip pain with resisted flexion at the hip on the right. With Strong equal bilateral distal pulses. No edema or joint tenderness. BACK: There is tenderness with palpation of the lumbar paraspinal muscles, there is also midline point tenderness over L3 and 4. Patient has pain tenderness and very tight muscles of the lumbar paraspinal region as well as right mid upper buttock which is patient's primary area of complaint/pain. Otherwise Nontender without deformity or crepitance. No flank tenderness. NEURO: AOx3. SKIN: No rash or erythema of visible areas Initial Vital Signs Initial Vital Signs: Vital Signs Temperature 98.7 F 02/15/25 12:18 Pulse Rate 82 02/15/25 12:18 Respiratory Rate 20 02/15/25 12:18 Blood Pressure 165/72 H 02/15/25 12:18 Pulse Oximetry 98 02/15/25 12:18 Oxygen Delivery Method Room Air 02/15/25 12:18 <Brenna Chang DO - Last Filed: 02/16/25 09:30> Initial Vital Signs Initial Vital Signs: Vital Signs Temperature 98.7 F 02/15/25 12:18 Pulse Rate 82 02/15/25 12:18 Respiratory Rate 20 02/15/25 12:18 Blood Pressure 165/72 H 02/15/25 12:18 Pulse Oximetry 98 02/15/25 12:18 Oxygen Delivery Method Room Air 02/15/25 12:18 Course <Buffy Arguello PA-C - Last Filed: 02/15/25 15:34> Orders Ordered: Discontinued Medications Acetaminophen (Acetaminophen 325 Mg Tablet) 650 mg PO NOW ONE Stop: 02/15/25 13:35 Last Admin: 02/15/25 13:47 Dose: 650 mg Documented By: ARTUR Ondansetron HCl (Ondansetron 4 Mg/2 Ml Inj) 4 mg IV NOW PRN PRN Reason: Nausea And Vomiting Ondansetron HCl (Ondansetron 4 Mg Odt) 4 mg SL NOW PRN PRN Reason: Nausea And Vomiting Vital Signs Vital signs: Vital Signs - 8 hr 02/15/25 12:18 Temperature 98.7 F Pulse Rate 82 Respiratory Rate 20 Blood Pressure 165/72 H Pulse Oximetry 98 Oxygen Delivery Method Room Air <Brenna Chang DO - Last Filed: 02/16/25 09:30> Orders Ordered: Discontinued Medications Acetaminophen (Acetaminophen 325 Mg Tablet) 650 mg PO NOW ONE Stop: 02/15/25 13:35 Last Admin: 02/15/25 13:47 Dose: 650 mg Documented By: ARTUR Ondansetron HCl (Ondansetron 4 Mg/2 Ml Inj) 4 mg IV NOW PRN PRN Reason: Nausea And Vomiting Ondansetron HCl (Ondansetron 4 Mg Odt) 4 mg SL NOW PRN PRN Reason: Nausea And Vomiting Vital Signs Vital signs: Vital Signs - 8 hr 02/15/25 12:18 Temperature 98.7 F Pulse Rate 82 Respiratory Rate 20 Blood Pressure 165/72 H Pulse Oximetry 98 Oxygen Delivery Method Room Air MDM - Back Pain/Injury <Buffy Arguello PA-C - Last Filed: 02/15/25 15:34> Differential Diagnosis Differential diagnosis: Likely lumbar radiculopathy, strain of lumbar region and other (Degenerative changes/osteoarthritis of the lumbar spine and hips) Lab Data Attestation: I reviewed the patient's lab results. Labs: Lab Results 02/15/25 Range/Units 12:50 Urine RBC None seen (0-5/HPF) Urine WBC None seen (0-5/HPF) Ur Squamous Epith Cells 0-1 /hpf (0-5/HPF) Urine Bacteria None seen (None) Ur Culture Indicated? Cult not indicated Vol Urine Centrifuged 10ml (spun) Urine Dip Bedside Urine Glucose Negative Bedside Urine Bilirubin - Negative Bedside Urine Ketone - Negative Urine Specific [place] 1.010 Bedside Urine Occult Blood +/- Bedside Urine pH 6.0 Bedside Urine Protein - Negative Bedside Urine Urobilinogen - Negative Bedside Urine Nitrite - Negative Bedside Urine Leukocytes - Negative Esterase Imaging Data XR hip: My Impression: Agree with Radiology interpretation Radiologist's Impression: [address] [address] XRay Report Signed Patient: Ana Barger MR#: [id number] : 1945 Acct:[id number] Age/Sex: 79 / F Date of Service: 02/15/25 Loc: ED Accession Number: [id number] Procedure: XR hip w pel if done BILAT 2V Ordering Provider: Buffy Arguello PA-C PROCEDURE: XR HIP W PEL IF DONE BILAT 2V INDICATIONS: 7D R hip pain/LBP now /10 TECHNIQUE: AP pelvis with lateral view(s) of both hip(s). COMPARISON: [facility], XR LUMBAR SPINE 2-3V, 02/15/2025, 13:53. FINDINGS: Bones: No fractures or dislocations. Pelvic ring appears intact. No suspicious bony lesions. There is moderate superior joint space narrowing seen of both hips, with associated remodeling changes with subchondral sclerosis and osteophyte formation. Note is made of osteitis pubis, which is not considered to be frankly abnormal in a woman of this age. Soft tissues: The visualized bowel gas pattern is normal. No suspicious soft tissue calcifications. IMPRESSION: Moderate bilateral hip degenerative change can be seen by plain film. If it would be helpful for clinical management decision making, please consider a dedicated hip MRI for further evaluation (assuming that there is no contraindication). If there is strong clinical concern for a labral abnormality, this should be performed according to the arthrogram protocol. Dictated by: Paulo Palmer M.D. on 02/15/2025 at 13:32 Approved by: Paulo Palmer M.D. on 02/15/2025 at 13:33 XR L spine: My Impression: Agree with Radiology interpretation Radiologist's Impression: [address] [address] XRay Report Signed Patient: Ana Barger MR#: [id number] : 1945 Acct:[id number] Age/Sex: 79 / F Date of Service: 02/15/25 Loc: ED Accession Number: [id number] Procedure: XR lumbar spine 2-3V Ordering Provider: Buffy Arguello PA-C PROCEDURE: XR LUMBAR SPINE 2-3V INDICATIONS: 7D LBP midline tender L4-5 TECHNIQUE: 3 views of the lumbar spine were acquired. COMPARISON: [facility], XR HIP W PEL IF DONE BILAT 2V, 02/15/2025, 13:53. [facility], CR, L-SPINE 2-3 VIEWS, 01/11/2018, 13:40. FINDINGS: Bones: 5 [id number] vertebrae are present. No vertebral body compression fractures. No suspicious bony lesions. Mild levoconvex scoliotic curvature is noted. There is moderate disc space narrowing at L2-L3, with associated endplate irregularity and sclerosis. Mild disc space narrowing is seen at L3-L4. Lower lumbar spine facet arthropathy is seen. Soft tissues: Overlying bowel gas pattern is normal. No suspicious soft tissue calcifications. Atherosclerotic calcification is noted. IMPRESSION: Lumbar spine degenerative changes are seen, which are worst at the L2-L3 level. The degenerative changes have progressed compared to 2018. If it would be helpful for clinical management decision making, please consider a dedicated, scheduled lumbar spine MRI for further evaluation (assuming that there is no contraindication). Dictated by: Paulo Palmer M.D. on 02/15/2025 at 13:31 Approved by: Paulo Palmer M.D. on 02/15/2025 at 13:32 MDM Narrative Medical decision making narrative: This is an 79-year-old woman with a history of hypertension, hyperlipidemia, MADINA presenting with concern for right low back/upper buttock pain worsening over the past week with no specific known injury. No radicular symptoms and she has no red flag symptoms or weakness on exam. She does appear to have pronounced muscle tightness, consistent with muscle strain possibly muscle spasming which could explain her pain. Urine dip is unremarkable. Area of her pain is very low and not consistent with kidney pain. She has no abdominal tenderness or other pain. Pain is relieved from an 8/10 to a 3/10 with 650 mg of Tylenol in the emergency department. It was also improved when she was at rest and worsened when she is walking or moving her leg. X-rays of the lumbar spine show degenerative changes of the lumbar spine worst at lumbar vertebrae 2-3, with disc space narrowing at lumbar 3-4. Hip x-ray shows moderate bilateral degenerative changes also. Based on no known injury. Very low suspicion for occult hip fracture. Advanced imaging is not obtained today. It is possible that she has had a worsening of her arthritis and degenerative changes which are contributing to holding herself differently causing muscle tightness and strain/spasming. We discussed treatment options, she is recommended to continue with Tylenol more consistently as this was very helpful for her pain. Also encouraged to see Orthopedics, talk to her primary care provider about this. As they may want to pursue advanced imaging. A short course of prednisone is prescribed, we discussed a muscle relaxer but given her age she agrees she prefers not to take this due to the increased fall risk. I think this is reasonable. She is encouraged to continue with heat in the area of her pain/muscle tightness as well. I have low suspicion for intra-abdominal pelvic or other etiology for her symptoms that would require labs or advanced imaging. Return precautions provided, follow-up plan discussed, all questions answered. <Brenna Chang, DO - Last Filed: 02/16/25 09:30> Lab Data Labs: Lab Results 02/15/25 Range/Units 12:50 Urine RBC None seen (0-5/HPF) Urine WBC None seen (0-5/HPF) Ur Squamous Epith Cells 0-1 /hpf (0-5/HPF) Urine Bacteria None seen (None) Ur Culture Indicated? Cult not indicated Vol Urine Centrifuged 10ml (spun) Urine Dip Bedside Urine Glucose Negative Bedside Urine Bilirubin - Negative Bedside Urine Ketone - Negative Urine Specific [place] 1.010 Bedside Urine Occult Blood +/- Bedside Urine pH 6.0 Bedside Urine Protein - Negative Bedside Urine Urobilinogen - Negative Bedside Urine Nitrite - Negative Bedside Urine Leukocytes - Negative Esterase Discharge Plan Departure Patient Disposition: Home Clinical Impression: Lumbar strain Qualifiers: Encounter type: initial encounter Qualified Code(s): S39.012A - Strain of muscle, fascia and tendon of lower back, initial encounter Osteoarthritis of lumbar spine Qualifiers: Spinal osteoarthritis complication: unspecified spinal osteoarthritis Qualified Code(s): M47.816 - Spondylosis without myelopathy or radiculopathy, lumbar region Osteoarthritis of hips, bilateral Qualifiers: Osteoarthritis type: unspecified Qualified Code(s): M16.0 - Bilateral primary osteoarthritis of hip Instructions: DI for Back Strain or Sprain Activity Restrictions/Additional Instructions: *You have been diagnosed with [lumbar strain, hip and lumbar osteoarthritis] *What to do: *Please continue to take your regular medications as directed. [1 ] New medication prescriptions sent to your pharmacy: [Prednisone] [ ] New medication written as a paper prescription [ ] No new medications given *Please follow up with your primary care provider in 2-3 days, call for an appointment. Let them know you were seen in the Emergency Department and that we ask that you be seen in follow up. We will electronically transmit a record of today's note if your PCP is in our system. You came in today with concern for pain in your right low back that has been getting worse over the past week. It did improve quite a bit with Tylenol that we gave you here in the emergency department. We got pictures of your lumbar spine and hips with x-ray which shows you have some degenerative changes to both your hips and your lumbar spine. These changes are chronic and gradual. Your exam is consistent with a muscle strain you have multiple tight muscles on the size of your spine and in your right low back at the location of your pain. We checked your urine today this was negative for urinary tract infection. Muscle relaxers could be helpful but given your age and the fact that they make it a little bit more at risk of falling and you live alone after discussion we agreed we will not prescribe these today I do think you should try heat over the area of pain. And try taking Tylenol/acetaminophen more consistently around the clock, do not take more than the maximum recommended dose per day or dose at a time per the bottle. I also prescribed a short course of steroid medicine. This is a strong anti- inflammatory it should be helpful in improving your pain. I would encourage you to follow up closely with your PCP and it may be valuable for you to see Orthopedics for further evaluation, possibly get some more advanced imaging. If you have new or worsening symptoms please make sure you seek re-evaluation. *If you do not have a primary care provider please contact the [facility] Resource line at [phone]. They will ask some questions about your medical history and help get you set up with a doctor in the community. *Return to Emergency Department if you should have any new, worsening or concerning symptoms, such as [fever greater than 101 F, shaking chills, worsening pain, persistent vomiting or other bothersome symptoms] Prescriptions: New prednisone 20 mg tablet 40 mg PO DAILY 3 Days Qty: 6 0RF No Action multivitamin Capsule 1 cap PO BEDTIME Qty: 0 Patient Comments: atorvastatin 20 mg tablet 20 mg PO ONCE PM Qty: 90 3RF escitalopram oxalate 10 mg tablet 10 mg PO DAILY Qty: 90 3RF hydrochlorothiazide 25 mg tablet 25 mg PO BEDTIME Qty: 90 3RF potassium chloride 10 mEq tablet extended release 10 meq PO DAILY Qty: 90 3RF aspirin 81 mg Tablet,Delayed Release (Dr/Ec) 81 mg PO DAILY Referrals: Jayson Devine MD [Primary Care Provider] - Stand Alone Forms: Patient Portal/API/Survey ED Sign-out <Brenna Chang DO - Last Filed: 02/16/25 09:30> Cosign ED Attending Cosignature Attestation: I was immediately available in the department for consultation.
[2025-02-15 13:11] LABS: Bacteria Urine None Seen; Culture Indicated Urine Cult Not Indicated; RBC Urine None Seen (0-5/HPF); Squamous Epithelial Cell Urine 0-1 /HPF (0-5/HPF); Urine Volume 10mL (spun); WBC Urine None Seen (0-5/HPF)
--- NOTE | 2025-02-15 13:34 | DI.RAD.S_ITS ---
PROCEDURE: XR LUMBAR SPINE 2-3V INDICATIONS: 7D LBP midline tender L4-5 TECHNIQUE: 3 views of the lumbar spine were acquired. COMPARISON: [facility], [facility], XR HIP W PEL IF DONE BILAT 2V, 02/15/2025, 13:53. [facility], [facility], L-SPINE 2-3 VIEWS, 01/11/2018, 13:40. FINDINGS: Bones: 5 [id number] vertebrae are present. No vertebral body compression fractures. No suspicious bony lesions. Mild levoconvex scoliotic curvature is noted. There is moderate disc space narrowing at L2-L3, with associated endplate irregularity and sclerosis. Mild disc space narrowing is seen at L3-L4. Lower lumbar spine facet arthropathy is seen. Soft tissues: Overlying bowel gas pattern is normal. No suspicious soft tissue calcifications. Atherosclerotic calcification is noted. IMPRESSION: Lumbar spine degenerative changes are seen, which are worst at the L2-L3 level. The degenerative changes have progressed compared to 2018. If it would be helpful for clinical management decision making, please consider a dedicated, scheduled lumbar spine MRI for further evaluation (assuming that there is no contraindication). Dictated by: Paulo Palmer M.D. on 02/15/2025 at 13:31 Approved by: Paulo Palmer M.D. on 02/15/2025 at 13:32
--- NOTE | 2025-02-15 13:34 | DI.RAD.S_ITS ---
PROCEDURE: XR HIP W PEL IF DONE BILAT 2V INDICATIONS: 7D R hip pain/LBP now 06/29 TECHNIQUE: AP pelvis with lateral view(s) of both hip(s). COMPARISON: [facility], , XR LUMBAR SPINE 2-3V, 02/15/2025, 13:53. FINDINGS: Bones: No fractures or dislocations. Pelvic ring appears intact. No suspicious bony lesions. There is moderate superior joint space narrowing seen of both hips, with associated remodeling changes with subchondral sclerosis and osteophyte formation. Note is made of osteitis pubis, which is not considered to be frankly abnormal in a woman of this age. Soft tissues: The visualized bowel gas pattern is normal. No suspicious soft tissue calcifications. IMPRESSION: Moderate bilateral hip degenerative change can be seen by plain film. If it would be helpful for clinical management decision making, please consider a dedicated hip MRI for further evaluation (assuming that there is no contraindication). If there is strong clinical concern for a labral abnormality, this should be performed according to the arthrogram protocol. Dictated by: Paulo Palmer M.D. on 02/15/2025 at 13:32 Approved by: Paulo Palmer M.D. on 02/15/2025 at 13:33
[2025-02-15] MEDS: ACETAMINOPHEN 325 MG TABLET 650 MG PO (13:47)
[2025-02-15 15:29] VITALS: BP 149/76; PULSE 72; RESP 12; O2SAT 96
== END 2025-02-15 15:32 | disposition home or self-care (01) ==
PROVIDERS: Emergency Provider Student in an Organized Health Care Education/Training Program; PCP Internal Medicine
DX: S39.012A Strain of muscle, fascia and tendon of lower back, initial encounter (principal); M47.816 Spondylosis without myelopathy or radiculopathy, lumbar region; M16.0 Bilateral primary osteoarthritis of hip; X58.XXXA Exposure to other specified factors, initial encounter
CPT/HCPCS: 72100; 73521; 81003; 81015; 99283

== ENCOUNTER → 2025-02-18 10:38 | Outpatient (CLI) | payer MEDICARE, BC, OTHER, SELFPAY ==
[2020-05-12 11:27] VITALS: BMI 24.2
[2025-02-18 12:47] LABS: Alanine Aminotransferase 23 IU/L (<35); Albumin 4.4 g/dL (3.5-5.0); Albumin Globulin Ratio 1.6 (1.0-2.8); Alkaline Phosphatase 70 U/L (38-126); Aspartate Aminotransferase 28 IU/L (14-36); BUN Creatinine Ratio 23.5 (6-22); Bilirubin Total 0.4 mg/dL (0.2-1.3); Blood Urea Nitrogen 20 mg/dL (7-17); Calcium 9.7 mg/dL (8.4-10.2); Carbon Dioxide 32 mmol/L (22-32); Chloride 97 mmol/L (98-107); Cholesterol 212 mg/dL (140-199); Estimated Glomerular Filt Rate > 60 mL/min (>60); Globulin 2.7 g/dL (1.7-4.1); Glucose 105 mg/dL (80-110); HDL Cholesterol 56 mg/dL (40-60); HEMOLYSIS < 15 (0-50); LDL Cholesterol Calculated 88 mg/dL (<100); Potassium 3.6 mmol/L (3.4-5.1); Sodium 138 mmol/L (137-145); Total Protein 7.1 g/dL (6.3-8.2); Triglycerides 338 mg/dL (35-150)
== END ==
PROVIDERS: PCP Internal Medicine; Referring Provider Internal Medicine; Visit Provider Internal Medicine
DX: I10 Essential (primary) hypertension (principal); E78.5 Hyperlipidemia, unspecified
CPT/HCPCS: 36415; 80053; 80061

== ENCOUNTER → 2025-05-28 16:53 | Outpatient (CLI) | payer MEDICARE, BC, OTHER, SELFPAY ==
[2020-05-12 11:27] VITALS: BMI 24.2
--- NOTE | 2025-05-28 16:56 | DI.MG.S_ITS ---
MM screening mammo BI: 05/28/2025. BI-RADS: 1 CLINICAL: 79-year old female for bilateral screening mammogram. Tyrer-Cuzick lifetime risk of 0.8%. No personal or first-degree family history of breast cancer. PRIOR EXAMS 04/03/2024, 03/04/2023, 02/28/2022, 02/22/2021, MAMMOGRAPHY TECHNIQUE: 2D and 3D (tomosynthesis) digital mammographic views obtained, with additional images as needed for full coverage. Current study was also evaluated with a Computer Aided Detection (CAD) system. DENSITY C. The breasts are heterogeneously dense, which may obscure small masses. MAMMOGRAPHY FINDINGS Bilateral: No suspicious mass, asymmetry, microcalcification, or other abnormality seen. IMPRESSION: * No evidence of malignancy. RECOMMENDATIONS Bilateral * Annual screening mammography. OVERALL ASSESSMENT CATEGORY BI-RADS-1: Negative. The [employer] recommends annual screening mammography beginning at age 40 for women with average risk of breast cancer. ELECTRONICALLY SIGNED: Freda Jones M.D. on 06/01/2025 at 08:42:40 PM PT Interpreting Station ID: [id number]
== END ==
PROVIDERS: PCP Internal Medicine; Referring Provider Internal Medicine; Visit Provider Internal Medicine
DX: Z12.31 Encounter for screening mammogram for malignant neoplasm of breast (principal); R92.333 Mammographic heterogeneous density, bilateral breasts
CPT/HCPCS: 77063; 77067